=== PATIENT | male | born 1970 | race Caucasian/White ===

== ENCOUNTER 2021-07-08 18:46 | Inpatient (IN) ==
[2021-07-08 21:21] LABS: Basophils # (auto) 0.03 K/uL (0-0.2); Basophils % (auto) 0.2 %; Eosinophils # (auto) 0.01 K/uL (0-0.5); Eosinophils % (auto) 0.1 %; Hematocrit (blood only) 41.6 % (42-52); Hemoglobin 14.9 g/dL (14.0-18.0); Immature Granulocytes # (auto) 0.13 K/uL (0.00-0.02); Immature Granulocytes % (auto) 0.9 %; Lymphocytes # (auto) 1.65 K/uL (1.2-3.4); Lymphocytes % (auto) 11.4 %; Mean Corpuscular Hemoglobin 32.6 pg (25-34); Mean Corpuscular Hgb Conc 35.8 g/dL (32-36); Mean Platelet Volume 10.4 fL (7.4-10.4); Monocytes # (auto) 2.19 K/uL (0.11-0.59); Monocytes % (auto) 15.1 %; Neutrophils % (auto) 72.3 %; Platelet Count 271 K/uL (130-400); RDW Coefficient of Variation 11.7 % (11.5-14.5); RDW Standard Deviation 39.1 fL (36.4-46.3); Red Blood Count 4.57 M/uL (4.7-6.1); White Blood Count 14.51 K/uL (4.8-10.8)
[2021-07-08 21:35] LABS: Partial Thromboplastin Time 27.5 Seconds (21.0-31.0); Prothrombin Time 10.4 Seconds (9.0-12.0)
[2021-07-08 21:44] LABS: Albumin Globulin Ratio 1.1 (0.9-2); Albumin Level 4.1 gm/dl (3.4-5.0); BUN Creatinine Ratio 17.1 (10-20); Bilirubin,Total 0.7 mg/dl (0.2-1.0); Calcium 9.5 mg/dl (8.5-10.1); Creatinine Clr Calc Pharmacy 171.3 ml/min; Est GFR (African American) 127.5 ml/min; Globulin 3.6 gm/dl (2.5-4.0); Potassium 3.4 mmol/L (3.5-5.1); Total Protein 7.7 gm/dl (6.0-8.3)
--- NOTE | 2021-07-08 22:12 | Emergency Department Note ---
Impression & Plan Cellulitis of foot, left, Leukocytosis, Fever, Hyperglycemia ED Provider Note INFORMANT: Patient ED PROVIDER(S): Levy Cota MD CHIEF COMPLAINT:foot infection PLAN: Disposition: Admitted Condition: Good Outpatient prescription management: none Referral: None MEDICAL DECISION MAKING: Patient presented because of a left foot infection. On physical examination he has significant cellulitis and a large deep hole on the plantar aspect of the forefoot. There is weeping present. He was tachycardic. His white blood cell count was elevated. Patient was also found to be hyperglycemic. He notes a family history of diabetes but denies any personal history. The patient had cultures performed of the blood as well as of the wound. IV broad-spectrum antibiotics with Zosyn and daptomycin ordered. X-ray imaging performed and no obvious osteomyelitis noted. Subcutaneous air was suspected on x-ray. His foot underwent CT imaging and there was concern for subcutaneous air without evidence of osteomyelitis or obvious abscess per stat rad. Clindamycin was added. The patient was also given IV insulin. I did consult with Dr. Newman of [facility]. He agreed with the antibiotics and admission. They will consult on the patient for further management. [facility]ation [facility] with [facility] Patient was e valuated in ER admitted for further management. Triage Nursing notes reviewed and agree them. Vital Signs: reviewed and remarkable for tachycardia Differential diagnosis: Cellulitis, abscess, MRSA infection, DVT, necrotizing fasciitis, dermatitis, drug eruption, allergic reaction, as well as other pathologies. Diagnostics interpreted by me: ECG: Twelve-lead ECG reveals sinus tachycardia [address] elevation or depression. No PACs or PVCs. Cardiac Monitoring: none Imaging studies: X-ray and CT imaging as above. I refer you to the EMR for further details. HPI: The patient is a 51 year old male who presents to the Emergency Room with complaints of left foot infection. This started 3 days ago and is worsening rapidly. The patient also notes the following associated symptoms, fevers, drainage, chills, redness and swelling. The patient has been prescribed oral keflex by urgent care for relieving factors. Current pain is rated as 3/10. Notes having a small wound on the foot a month ago occur while swimming at a pool in [place]. Pt denies LOC, headache, diaphoresis, visual changes, neck pain, chest pain, breathing difficulties, nausea, vomiting, abdominal pain, back pain, melena, hematochezia, urinary symptoms, numbness, weakness, lymphadenopathy, rash, or other complaints. ROS: See above HPI for pertinent positives & negatives. A total of 10 systems reviewed and were otherwise negative. PAST MEDICAL HISTORY:See Below , htn PAST SURGICAL HISTORY:See Below, FAMILY HISTORY:See Below SOCIAL HISTORY:See Below, no tobacco HOME MEDICATIONS:See Below ALLERGIES:See Below VITALS:See Below PHYSICAL EXAMINATION: GENERAL: Awake, alert, well-appearing, in no distress HENT: Normocephalic, atraumatic. Oropharynx unremarkable. EYES: Normal conjunctiva. Sclera non-icteric. NECK: Inspection normal. Non-tender. Supple. No nuchal rigidity. FROM. No masses. RESPIRATORY: Clear to auscultation. No wheezes. No rales. Normal respiratory ef fort. CARDIAC: Normal rate. Normal rhythm. No murmurs. No rubs. Extremities warm and well perfused. Pulses equal. No JVD. GI: Soft, non-distended. No tenderness to palpation. No rebound or guarding. No masses. RECTAL: Deferred. MUSCULOSKELETAL: Atraumatic. Chest examination reveals no tenderness. The back is symmetrical on inspection without obvious abnormality. There is no CVA tenderness to palpation. No joint edema. LOWER EXTREMITIES: Calves are equal size bilaterally and non-tender. left foot with warmth, erythema, and drainage. Wound present on forefoot with maceration of the plantar aspect and between the toes. Moderately tender to palpation. NEURO: Normal sensorium. No sensory or motor deficits noted. SKIN: No rash or jaundice noted. Levy Cota MD Past Med/Surg History Social History Smoking Status: Never smoker Preferred Language: Telugu Feels Safe at Home: Yes Allergies Allergies Allergy/AdvReac Type Severity Reaction Status Date / Time No Known Allergies Allergy Verified 07/08/21 23:39 Home Meds Home Medications Medication Instructions Recorded Confirmed cephalexin 500 mg capsule 500 mg PO TID 07/08/21 07/08/21 famotidine 10 mg tablet 10 mg PO HS PRN 07/08/21 07/08/21 hydrochlorothiazide 25 mg tablet 25 mg PO DAILY 07/08/21 07/08/21 ibuprofen 200 mg tablet (Advil) 400 mg PO DIRECTED PRN 07/08/21 07/08/21 lisinopril 40 mg tablet 40 mg PO DAILY 07/08/21 07/08/21 Results & Data (ED) Vital Signs Vital Signs - 24 hr 07/08/21 19:13 Temperature 37.2 C Temperature Source Temporal Artery Scan Pulse Rate 132 H Respiratory Rate 16 Blood Pressure 111/72 Blood Pressure Mean 85 Pulse Oximetry 97 Oxygen Delivery Method Room Air Sepsis Recent Fever Within 48 Hours No Sepsis New/Unexplained Change in Mental Status N/A Sepsis Action Taken by Nursing No Action Required Laboratory Data Result diagrams: 07/08/21 21:03 07/08/21 21:03 Lab Results 07/08/21 07/08/21 07/08/21 Range/Units 21:03 21: 21:03 WBC 14.51 H (4.8-10.8) K/uL RBC 4.57 L (4.7-6.1) M/uL Hgb 14.9 (14.0-18.0) g/dL Hct 41.6 L (42-52) % MCV 91.0 (80-100) fL MCH 32.6 (25-34) pg MCHC 35.8 (32-36) g/dL RDW Std Deviation 39.1 (36.4-46.3) fL RDW Coeff of Edison 11.7 (11.5-14.5) % Plt Count 271 (130-400) K/uL MPV 10.4 (7.4-10.4) fL Immature Gran % (Auto) 0.9 % Neut % (Auto) 72.3 % Lymph % (Auto) 11.4 % [place] % (Auto) 15.1 % Eos % (Auto) 0.1 % Baso % (Auto) 0.2 % Neut # (Auto) 10.50 H (1.4-6.5) K/uL Lymph # (Auto) 1.65 (1.2-3.4) K/uL [place] # (Auto) 2.19 H (0.11-0.59) K/uL Eos # (Auto) 0.01 (0-0.5) K/uL Baso # (Auto) 0.03 (0-0.2) K/uL Immature Gran # (Auto) 0.13 H (0.00-0.02) K/uL PT 10.4 (9.0-12.0) Seconds INR 1.0 (0.9-1.1) APTT 27.5 (21.0-31.0) Seconds PTT Ratio 1.0 Sodium 131 L (136-145) mmol/L Potassium 3.4 L (3.5-5.1) mmol/L Chloride 92 L (98-107) mmol/L Carbon Dioxide 25 (21-32) mmol/L Anion Gap 14 H (3-11) BUN 12 (6-23) mg/dl Creatinine 0.70 (0.6-1.4) mg/dl Est Cr Clr Drug Dosing 171.3 ml/min Est GFR ( Amer) 127.5 ml/min Est GFR (Non-Af Amer) 110.0 ml/min BUN/Creatinine Ratio 17.1 (10-20) Glucose 310 H* (70-99(Fasting)) mg/dl POC Glucose (70-99) mg/dl Lactate (0.4-2.0) mmol/L Calcium 9.5 (8.5-10.1) mg/dl Magnesium 2.0 (1.7-2.4) mg/dl Total Bilirubin 0.7 (0.2-1.0) mg/dl AST 20 (13-39) U/L ALT 28 (7-52) U/L Alkaline Phosphatase 64 (34-104) U/L Total Protein 7.7 (6.0-8.3) gm/dl Albumin 4.1 (3.4-5.0) gm/dl Globulin 3.6 (2.5-4.0) gm/dl Albumin/Globulin Ratio 1.1 (0.9-2) TSH (0.300-4.500) uIu/ml SARS-CoV-2, RNA, NAAT (NEGATIVE) 07/08/21 07/08/21 07/08/21 Range/Units 21:03 21:03 22:25 WBC (4.8-10.8) K/uL RBC (4.7-6.1) M/uL Hgb (14.0-18.0) g/dL Hct (42-52) % MCV (80-100) fL MCH (25-34) pg MCHC (32-36) g/dL RDW Std Deviation (36.4-46.3) fL RDW Coeff of Edison (11.5-14.5) % Plt Count (130-400) K/uL MPV (7.4-10.4) fL Immature Gran % (Auto) % Neut % (Auto) % Lymph % (Auto) % [place] % (Auto) % Eos % (Auto) % Baso % (Auto) % Neut # (Auto) (1.4-6.5) K/uL Lymph # (Auto) (1.2-3.4) K/uL [place] # (Auto) (0.11-0.59) K/uL Eos # (Auto) (0-0.5) K/uL Baso # (Auto) (0-0.2) K/uL Immature Gran # (Auto) (0.00-0.02) K/uL PT (9.0-12.0) Seconds INR (0.9-1.1) APTT (21.0-31.0) Seconds PTT Ratio Sodium (136-145) mmol/L Potassium (3.5-5.1) mmol/L Chloride (98-107) mmol/L Carbon Dioxide (21-32) mmol/L Anion Gap (3-11) BUN (6-23) mg/dl Creatinine (0.6-1.4) mg/dl Est Cr Clr Drug Dosing ml/min Est GFR ( Amer) ml/min Est GFR (Non-Af Amer) ml/min BUN/Creatinine Ratio (10-20) Glucose (70-99(Fasting)) mg/dl POC Glucose (70-99) mg/dl Lactate 1.1 (0.4-2.0) mmol/L Calcium (8.5-10.1) mg/dl Magnesium (1.7-2.4) mg/dl Total Bilirubin (0.2-1.0) mg/dl AST (13-39) U/L ALT (7-52) U/L Alkaline Phosphatase (34-104) U/L Total Protein (6.0-8.3) gm/dl Albumin (3.4-5.0) gm/dl Globulin (2.5-4.0) gm/dl Albumin/Globulin Ratio (0.9-2) TSH 4.031 (0.300-4.500) uIu/ml SARS-CoV-2, RNA, NAAT NEGATIVE (NEGATIVE) 07/09/21 07/09/21 Range/Units 00:15 01:41 WBC (4.8-10.8) K/uL RBC (4.7-6.1) M/uL Hgb (14.0-18.0) g/dL Hct (42-52) % MCV (80-100) fL MCH (25-34) pg MCHC (32-36) g/dL RDW Std Deviation (36.4-46.3) fL RDW Coeff of Edison (11.5-14.5) % Plt Count (130-400) K/uL MPV (7.4-10.4) fL Immature Gran % (Auto) % Neut % (Auto) % Lymph % (Auto) % [place] % (Auto) % Eos % (Auto) % Baso % (Auto) % Neut # (Auto) (1.4-6.5) K/uL Lymph # (Auto) (1.2-3.4) K/uL [place] # (Auto) (0.11-0.59) K/uL Eos # (Auto) (0-0.5) K/uL Baso # (Auto) (0-0.2) K/uL Immature Gran # (Auto) (0.00-0.02) K/uL PT (9.0-12.0) Seconds INR (0.9-1.1) APTT (21.0-31.0) Seconds PTT Ratio Sodium (136-145) mmol/L Potassium (3.5-5.1) mmol/L Chloride (98-107) mmol/L Carbon Dioxide (21-32) mmol/L Anion Gap (3-11) BUN (6-23) mg/dl Creatinine (0.6-1.4) mg/dl Est Cr Clr Drug Dosing ml/min Est GFR ( Amer) ml/min Est GFR (Non-Af Amer) ml/min BUN/Creatinine Ratio (10-20) Glucose (70-99(Fasting)) mg/dl POC Glucose 348 H* 350 H* (70-99) mg/dl Lactate (0.4-2.0) mmol/L Calcium (8.5-10.1) mg/dl Magnesium (1.7-2.4) mg/dl Total Bilirubin (0.2-1.0) mg/dl AST (13-39) U/L ALT (7-52) U/L Alkaline Phosphatase (34-104) U/L Total Protein (6.0-8.3) gm/dl Albumin (3.4-5.0) gm/dl Globulin (2.5-4.0) gm/dl Albumin/Globulin Ratio (0.9-2) TSH (0.300-4.500) uIu/ml SARS-CoV-2, RNA, NAAT (NEGATIVE) Administered Medications Discontinued Medications Piperacillin Sod/Tazobactam Sod (Zosyn) 4.5 gm in 120 mls @ 240 mls/hr IV NOW ONE Stop: 07/08/21 22:47 Last Infusion: 07/09/21 01:08 Dose: 0 mls/hr Documented by: [id number] Admin: 07/09/21 00:31 Dose: 240 mls/hr Documented by: [id number] Daptomycin 500 mg/ Syringe 10 mls @ 5 mls/min IV ONE ONE; Protocol Stop: 07/08/21 22:19 Last Admin: 07/09/21 00:31 Dose: 5 mls/min Documented by: [id number] Clindamycin Phosphate 900 mg/ (Dextrose) 56 mls @ 112 mls/hr IV ONE ONE Stop: 07/09/21 00:26 Last Infusion: 07/09/21 01:46 Dose: 0 mls/hr Documented by: [id number] Admin: 07/09/21 01:09 Dose: 112 mls/hr Documented by: [id number] Lactated Ringer's (Lr) 1,000 mls @ 500 mls/hr IV .Q2H ONE Stop: 07/09/21 02:10 Last Admin: 07/09/21 02:08 Dose: 500 mls/hr Documented by: [id number] Insulin Glargine (Insulin Glargine Solostar 100 Units/Ml 3 Ml Pen) 30 units SC NOW STA Stop: 07/09/21 00:16 Last Admin: 07/09/21 02:05 Dose: 30 units Documented by: [id number] Cosigned by: [id number] Insulin Human Regular (Novolin-R Insulin Per Unit Charge) 6 units IV NOW STA Stop: 07/09/21 00:00 Last Admin: 07/09/21 00:28 Dose: 6 units Documented by: [id number] Cosigned by: [id number] Ioversol (Optiray 320 100ml) 95 ml IV ONCE ONE Stop: 07/08/21 22:58 Last Admin: 07/09/21 02:16 Dose: Not Given Documented by: [id number] Potassium Chloride (Potassium Chloride Crtab 20 Meq Tabcr) 40 meq PO NOW STA Stop: 07/09/21 00:12 Last Admin: 07/09/21 00:31 Dose: 40 meq Documented by: [id number] Discharge Plan Visit Data Chief Complaint: Infection Stated Complaint: LT FOOT INFECTION, REFERRED BY MED Perfect [employer] ED Provider: Levy Cota Discharge Problem: Cellulitis of foot, left, Leukocytosis, Fever, Hyperglycemia Forms Stand Alone Forms: [facility] Prescriptions Prescriptions: No Action famotidine 10 mg Tablet 10 mg PO HS PRN (Reason: HEARTBURN/INDIGESTION) RF: 0 cephalexin 500 mg capsule 500 mg PO TID RF: 0 ibuprofen [Advil] 200 mg Tablet 400 mg PO DIRECTED PRN (Reason: Pain) RF: 0 hydrochlorothiazide 25 mg tablet 25 mg PO DAILY RF: 0 lisinopril 40 mg tablet 40 mg PO DAILY RF: 0 Referrals Referrals: PCP,NO [Primary Care Provider] -
[2021-07-08] MEDS ORDERED: PIPERACILLIN/TAZOBACTAM 4.5 GM/120 ML BAG IV ONE (22:18)
[2021-07-08] MEDS ORDERED: PIPERACILL/TAZOBAC CONSULT ACTIVE PRN (22:18)
[2021-07-08] MEDS ORDERED: DAPTOmycin 500 MG in SYRINGE 0 ML IV ONE (22:18)
[2021-07-08] MEDS ORDERED: OPTIRAY 320 100ml IV ONE (22:57)
[2021-07-08] MEDS ORDERED: CLINDAMYCIN 900 MG in DEXTROSE 5% 50 ML IV ONE (23:57)
[2021-07-08] MEDS ORDERED: NovoLIN-R INSULIN PER UNIT CHARGE IV STA (23:59)
[2021-07-09] MEDS ORDERED: LACTATED RINGER'S 1,000 ML IV ONE ×2 (00:11→04:00)
[2021-07-09] MEDS ORDERED: POTASSIUM CHLORIDE CRTAB 20 MEQ TABCR PO STA (00:11)
[2021-07-09] MEDS ORDERED: INSULIN GLARGINE SOLOSTAR 100 UNITS/ML 3 ML PEN SC STA (00:15)
--- NOTE | 2021-07-09 01:36 | History & Physical Report ---
Date of Service July 09, 2021 Assessment & Plan (1) Sepsis: Plan: Secondary to infected L foot wound in a probable newly diagnosed diabetic male Rule out osteomyelitis Hypertension, stable Hypokalemia secondary diuretic Rx Medical telemetry CS, Daptomycin, Zosyn for now Follow outpatient wound CS result Follow official CT left foot report. May need MRI left foot to definitively rule out osteomyelitis. Offload LLE. Orthopedics consult Re: Left foot wound infection (ER provider already in touch with Dr. Newman.) Basal insulin, ISS BG goal 110-1 40, carb count coverage, check hemoglobin A1c Replace potassium, IVF, hold home diuretic until patient euvolemic Diabetic education Patient also requesting for referral to new PCP from [facility] upon discharge. DVT prophylaxis per Lovenox subcu Full code Text document was generated using [employer] voice recognition software. It may contain grammatical or spelling errors. Kindly contact undersigned for clarification of any documentation item in question. History of Present Illness Chief Complaint: Left foot wound infection Primary Care Provider: NO PCP Patient requesting to be set up with a [facility] PCP in [place] upon discharge. History obtained from patient and records. Medical history significant for hypertension, scoliosis. Patient has not been to a family doctor since 2009. 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 Patient has had a wound on his left foot for about 2 months. Started with a small hole at the bottom of the foot that would close up and reopen over the last few weeks. OTC topical antibiotic Rx utilized by patient. About 5 days ag o, patient noted sudden worsening of left foot wound with some drainage. Some chills. No chest pain, no S OB. Patient sent a picture to his [id number] who prescribed Keflex course. Patient consulted [facility] urgent care yesterday because of worsening left foot wound infection. Necrotic wound on the left foot noted. Wound cultures obtained outpatient. Patient directed to ER for evaluation. Daptomycin, Clindamycin, and Zosyn administered at the emergency room. IV insulin administered at the ER for blood sugar in the 300s. 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 Allergies Allergy/AdvReac Type Severity Reaction Status Date / Time No Known Allergies Allergy Verified 07/08/21 23:39 Home Medications Medication Instructions Recorded Confirmed Type cephalexin 500 mg capsule 500 mg PO TID 07/08/21 07/08/21 History famotidine 10 mg tablet 10 mg PO HS PRN 07/08/21 07/08/21 History hydrochlorothiazide 25 mg tablet 25 mg PO DAILY 07/08/21 07/08/21 History ibuprofen 200 mg tablet (Advil) 400 mg PO DIRECTED PRN 07/08/21 07/08/21 History lisinopril 40 mg tablet 40 mg PO DAILY 07/08/21 07/08/21 History Past Med/Surg History Social History Smoking Status: Never smoker Hx Substance Use: No Preferred Language: Greenlandic Communication Ability: Effective Stem Cleaning Machine Feeder Required: No Beliefs That Will Affect Care: None Current Living Situation: Alone Feels Safe at Home: Yes Safety Concerns: Feels Safe At This Time Assistive Devices: Glasses Review of Systems Review of Systems: As per HPI, all 10 systems reviewed, all other ROS negative Physical Exam Physical Exam: GENERAL: Comfortable, sweaty, obese, pleasant, no respiratory distress SKIN: Normal color, warm HEENT: Bespectacled, Roann palpebral conjunctivae, no ptosis, dry buccal mucosa NECK : Supple, short neck, no tenderness CHEST : CTA, no tenderness HEART : Tachycardic, no obvious murmurs ABDOMEN: Some distention, nontender EXTREMITIES : No LE swelling/tenderness, dressing and boot over left foot, no other conspicuous deformities noted NEUROLOGIC : Coherent, no facial asymmetry, no other gross focality Results & Data Results & Data ([facility]) Vital Signs (Past 12 Hours) Vital Signs Temp Pulse Resp BP Pulse Ox 07/08/21 19:13 37.2 C 132 H 16 111/72 97 Laboratory Results Laboratory Results WBC 14.51 K/uL (4.8-10.8) H 07/08/21 21:03 RBC 4.57 M/uL (4.7-6.1) L 07/08/21 21:03 Hgb 14.9 g/dL (14.0-18.0) 07/08/21 21:03 Hct 41.6 % (42-52) L 07/08/21 21:03 MCV 91.0 fL (80-100) 07/08/21 21:03 MCH 32.6 pg (25-34) 07/08/21 21:03 MCHC 35.8 g/dL (32-36) 07/08/21 21:03 RDW Std Deviation 39.1 fL (36.4-46.3) 07/08/21 21:03 RDW Coeff of Edison 11.7 % (11.5-14.5) 07/08/21 21:03 Plt Count 271 K/uL (130-400) 07/08/21 21:03 MPV 10.4 fL (7.4-10.4) 07/08/21 21:03 Immature Gran % (Auto) 0.9 % 07/08/21 21:03 Neut % (Auto) 72.3 % 07/08/21 21:03 Lymph % (Auto) 11.4 % 07/08/21 21:03 [place] % (Auto) 15.1 % 07/08/21 21:03 Eos % (Auto) 0.1 % 07/08/21 21:03 Baso % (Auto) 0.2 % 07/08/21 21:03 Neut # (Auto) 10.50 K/uL (1.4-6.5) H 07/08/21 21:03 Lymph # (Auto) 1.65 K/uL (1.2-3.4) 07/08/21 21:03 [place] # (Auto) 2.19 K/uL (0.11-0.59) H 07/08/21 21:03 Eos # (Auto) 0.01 K/uL (0-0.5) 07/08/21 21: Baso # (Auto) 0.03 K/uL (0-0.2) 07/08/21 21:03 Immature Gran # (Auto) 0.13 K/uL (0.00-0.02) H 07/08/21 21: PT 10.4 Seconds (9.0-12.0) 07/08/21 21:03 INR 1.0 (0.9-1.1) 07/08/21 21:03 APTT 27.5 Seconds (21.0-31.0) 07/08/21 21: PTT Ratio 1.0 07/08/21 21: Sodium 131 mmol/L (136-145) L 07/08/21 21:03 Potassium 3.4 mmol/L (3.5-5.1) L 07/08/21 21:03 Chloride 92 mmol/L (98-107) L 07/08/21 21:03 Carbon Dioxide 25 mmol/L (21-32) 07/08/21 21:03 Anion Gap 14 (3-11) H 07/08/21 21:03 BUN 12 mg/dl (6-23) 07/08/21 21:03 Creatinine 0.70 mg/dl (0.6-1.4) 07/08/21 21:03 Est Cr Clr Drug Dosing 171.3 ml/min 07/08/21 21:03 Est GFR ( Amer) 127.5 ml/min 07/08/21 21:03 Est GFR (Non-Af Amer) 110.0 ml/min 07/08/21 21:03 BUN/Creatinine Ratio 17.1 (10-20) 07/08/21 21:03 Glucose 310 mg/dl (70-99(Fasting)) H* 07/08/21 21:03 POC Glucose 348 mg/dl (70-99) H* 07/09/21 00:15 Lactate 1.1 mmol/L (0.4-2.0) 07/08/21 21:03 Calcium 9.5 mg/dl (8.5-10.1) 07/08/21 21:03 Magnesium 2.0 mg/dl (1.7-2.4) 07/08/21 21:03 Total Bilirubin 0.7 mg/dl (0.2-1.0) 07/08/21 21:03 AST 20 U/L (13-39) 07/08/21 21:03 ALT 28 U/L (7-52) 07/08/21 21:03 Alkaline Phosphatase 64 U/L (34-104) 07/08/21 21:03 Total Protein 7.7 gm/dl (6.0-8.3) 07/08/21 21:03 Albumin 4.1 gm/dl (3.4-5.0) 07/08/21 21:03 Globulin 3.6 gm/dl (2.5-4.0) 07/08/21 21:03 Albumin/Globulin Ratio 1.1 (0.9-2) 07/08/21 21:03 TSH 4.031 uIu/ml (0.300-4.500) 07/08/21 21:03 SARS-CoV-2, RNA, NAAT NEGATIVE (NEGATIVE) 07/08/21 22:[address] left foot initial read: Abnormal soft tissue air likelyrelated to soft tissue infection. No foreign body. There is awound on the plantar aspect of the forefoot near the second and third metatarsal heads . There is no evidence of active bone destruction byCT. No fracture or dislocation. Chest x-ray as per my interpretation no congestion EKG as per my interpretation : Rate 120, sinus tachycardia, normal axis, no ischemia
[2021-07-09] MEDS ORDERED: PROMETHAZINE HCL 12.5 MG in SODIUM CHLORIDE 0.9% 50 ML IV PRN (03:50)
[2021-07-09] MEDS ORDERED: GLUCOSE 40% GEL 15 GM TUBE PO PRN (03:50)
[2021-07-09] MEDS ORDERED: oxyCODONE HCL IR 5 MG TAB (IMMEDIATE RELEASE) PO PRN (03:50)
[2021-07-09] MEDS ORDERED: GLUCOSE 10 TABS/TUBE PO PRN (03:50)
[2021-07-09] MEDS ORDERED: CARBOHYDRATES FOR HYPOGLYCEMIA PO PRN (03:50)
[2021-07-09] MEDS ORDERED: GLUCAGON FOR INJ 1 MG VIAL SQ PRN (03:50)
[2021-07-09] MEDS ORDERED: MoRPHine SULFATE 4 MG/ML 1 ML CARP\\VIAL IV PRN (03:50)
[2021-07-09] MEDS ORDERED: DEXTROSE 50% 50 ML SYRINGE IV PRN (03:50)
[2021-07-09] MEDS: INSULIN ASPART PER UNIT SC SCH ×5 (04:00→20:42)
[2021-07-09 06:17] LABS: Basophils # (auto) 0.03 K/uL (0-0.2); Basophils % (auto) 0.2 %; Eosinophils # (auto) 0.03 K/uL (0-0.5); Eosinophils % (auto) 0.2 %; Hematocrit (blood only) 39.3 % (42-52); Hemoglobin 13.5 g/dL (14.0-18.0); Immature Granulocytes % (auto) 0.8 %; Lymphocytes # (auto) 2.45 K/uL (1.2-3.4); Lymphocytes % (auto) 19.2 %; Mean Corpuscular Hemoglobin 32.1 pg (25-34); Mean Corpuscular Hgb Conc 34.4 g/dL (32-36); Mean Corpuscular Volume 93.3 fL (80-100); Mean Platelet Volume 10.3 fL (7.4-10.4); Monocytes % (auto) 16.5 %; Neutrophils # (auto) 8.02 K/uL (1.4-6.5); Neutrophils % (auto) 63.1 %; Platelet Count 260 K/uL (130-400); RDW Coefficient of Variation 11.9 % (11.5-14.5); RDW Standard Deviation 40.1 fL (36.4-46.3); Red Blood Count 4.21 M/uL (4.7-6.1); White Blood Count 12.73 K/uL (4.8-10.8)
[2021-07-09 06:43] LABS: BUN Creatinine Ratio 14.9 (10-20); Calcium 8.9 mg/dl (8.5-10.1); Est GFR (African American) 124.7 ml/min; Est GFR (Non-African American) 107.6 ml/min; Potassium 3.6 mmol/L (3.5-5.1)
[2021-07-09] MEDS: PIPERACILLIN/TAZOBACTAM 4.5 GM in DEXTROSE 5% 100 ML IV SCH ×3 (07:11→23:21)
--- NOTE | 2021-07-09 07:19 | XRay Report ---
SINGLE VIEW CHEST CLINICAL HISTORY: Sepsis. FINDINGS: 2 AP, portable, upright chest radiographs are obtained. No prior studies are available for comparison at the time of dictation. The cardiomediastinal silhouette is unremarkable. The lungs and pleural spaces are clear. No pneumothorax is seen. The bony thorax is grossly intact. IMPRESSION: No acute cardiopulmonary abnormality. ACT 112: Negative or not required by law. Electronically signed by: De Reynoso M.D. 07/09/2021 7:18 AM
--- NOTE | 2021-07-09 07:24 | XRay Report ---
LEFT FOOT 3 VIEWS CLINICAL HISTORY: Wound infection. FINDINGS: 3 views of the left foot are obtained. No prior studies are available for comparison at the time of dictation. The skeletal structures are well mineralized. No fracture is seen. There is no [place] erosion or periostitis. Moderate osteoarthritic change is noted at the first metatarsophalangeal j oint. Soft tissue edema is seen throughout the forefoot. A wound is suspected along the plantar aspec t of the forefoot. Soft tissue gas is present in the forefoot, greatest in the first digit. No radiod ense foreign body is identified. IMPRESSION: 1. No acute bony abnormality is identified. 2. Soft tissue edema, a plantar wound, and soft tissue gas are present in the forefoot. Correlate cli nically for evidence of necrotizing infection. Electronically signed by: De Reynoso M.D. 07/09/2021 7:23 AM
[2021-07-09 07:31] LABS: Estimated Average Glucose 249 mg/dl; Hemoglobin A1C 10.3 % (4.5-5.6)
--- NOTE | 2021-07-09 08:34 | CT Scan Report ---
CT SCAN OF THE LEFT FOOT WITH IV CONTRAST CLINICAL HISTORY: Cellulitis. COMPARISON STUDY: Radiographs of left foot dated 07/08/2021. TECHNIQUE: Following the IV administration of 95 cc of Optiray 320, CT scan of the left foot is perfo rmed from the ankle to the base of the foot. Images are reviewed in the axial, sagittal, and coronal planes. IV contrast was administered without complication. A dose lowering technique was utilized adh ering to the principles of ALARA. CT DOSE: 218.67 mGy.cm FINDINGS: The skeletal structures are well mineralized. There is no evidence of fracture. The ankle m ortise is intact. Moderate osteoarthritic change is seen at the first metatarsophalangeal joint. Mild erosive change is seen at the plantar base of the first distal phalanx on axial image #323. This sug gests osteomyelitis. No additional foci of bony erosion are identified. An os trigonum is incidentall y noted. Diffuse soft tissue edema is present throughout the forefoot, with a wound suggested along t he plantar aspect of the second metatarsal. Soft tissue gas is present throughout the forefoot, great est in the first and second toes. This suggests necrotizing infection. No organized/drainable fluid c ollection is seen to indicate abscess. No radiodense foreign body is identified. The Achilles tendon is intact as imaged. IMPRESSION: 1. There is a plantar wound in the forefoot with evidence of cellulitis/necrotizing soft tissue infec tion. 2. Erosive change is present along the plantar base of the first distal phalanx. This is strongly ash picious for osteomyelitis. 3. No additional foci of bony erosion are identified. 4. No fracture is seen. 5. There is no organized/drainable fluid collection identified to indicate abscess. ACT 112: Negative or not required by law. Dictated: 07/09/2021 7:53 AM Transcribed: 07/09/2021 8:29 AM Lisa [id number] [email or web address] Electronically signed by: De Reynoso M.D. 07/09/2021 8:32 AM
[2021-07-09] MEDS ORDERED: ENOXAPARIN INJ 40 MG/0.4 ML SYR SQ SCH (09:00)
[2021-07-09] MEDS: lisinopril 40 MG TAB PO SCH (09:36)
[2021-07-09] MEDS: SACCHAROMYCES BOULARDII 250 MG CAP PO SCH (10:46)
--- NOTE | 2021-07-09 12:03 | Electrocardiogram Report ---
Test Reason : Blood Pressure : / mmHG Vent. Rate : 118 BPM Atrial Rate : 118 BPM P-R Int : 146 ms QRS Dur : 092 ms QT Int : 332 ms P-R-T Axes : 055 015 045 degrees QTc Int : 465 ms Sinus tachycardia Otherwise normal ECG No previous ECGs available Confirmed by Darnell Wray ([id number]) on 07/09/2021 12:01:51 PM Referred By: REFERRED SELF Confirmed By:Darnell Wray
--- NOTE | 2021-07-09 13:42 | Hospitalist Progress Note ---
Date of Service July 09, 2021 Assessment & Plan Plan: Left DM foot infection Underlying Osteomyelitis Necrotic soft tissue infection -Surgical consultation pending, I discussed directly with provider today -check ESR, CPR tomorrow to establish baseline and for purpose of monitoring treatment -improved leukocytosis, trend CBC, BMP -deep tissue culture sent yesterday--> will follow up -Once tissue culture (and possiblye OR culture) data is available--> will disc uss with ID regarding final antibiotic recommendations -Continue daptomycin and zosyn Newly diagnosed poorly controlled DM -HA1c 10.3% -He is currently on insulin, with new diagnosis. DM educator and glycemic pharmacist consulted Poorly controlled HTN -at home, was previously on lisinopril 40mg daily and HCTZ 25mg daily -here is only on lisinopril 40mg. Will also resume HCTZ 25mg for better BP control DVT ppx SQ lovenox. Hold tomorrow's dose in anticipation of surgery Admission and Anticipated Discharge Date Admission Date: July 09, 2021 Subjective Reports foot feels better, less swollen BP elevated, but patient thinks it may be due to stress. "I'm very upset right now. I just found out I have diabetes and now you're telling me I may need surgery" Physical Exam Physical Exam: overweight, pleasant, comfortable, no acute distress Respiratory: breathing comfortably on room air, no wheezing/rhonchi/rales Cardiovascular: regular rate and rhythm, no murmurs/rubs/gallops Gastrointestinal (Abdomen): soft Musculoskeletal: left foot with extensive swelling, redness, with underlying purulence on plantar aspect. Skin: Left foot erythematous, with underlying purulence Neurologic: awake, alert, spontaneously moving extremities Results & Data Results & Data ([facility]) Vital Signs (Past 12 Hours) Vital Signs Pulse Resp BP Pulse Ox Pulse Ox 07/09/21 08:00 93 H 17 160/103 H 95 07/09/21 07:20 97 07/09/21 07:00 96 H 17 145/103 H 97 07/09/21 02:30 110 H 16 135/80 100 Laboratory Results Short CBC 07/08/21 07/09/21 Range/Units 21:03 06:01 WBC 14.51 H 12.73 H (4.8-10.8) K/uL Hgb 14.9 13.5 L (14.0-18.0) g/dL Hct 41.6 L 39.3 L (42-52) % Plt Count 271 260 (130-400) K/uL BMP 07/08/21 07/09/21 21:03 06:01 Sodium 131 L 132 L Potassium 3.4 L 3.6 Chloride 92 L 95 L Carbon Dioxide 25 29 BUN 12 11 Creatinine 0.70 0.74 Glucose 310 H* 266 H Calcium 9.5 8.9 Liver Function 07/08/21 Range/Units 21:03 Total Bilirubin 0.7 (0.2-1.0) mg/dl AST 20 (13-39) U/L ALT 28 (7-52) U/L Alkaline Phosphatase 64 (34-104) U/L Albumin 4.1 (3.4-5.0) gm/dl Medications Administered Current Inpatient Medications Acetaminophen (Acetaminophen 325 Mg Tab) 650 mg PO Q4H PRN PRN Reason: Pain or Fever Stop: 08/08/21 03:49 Dextrose (Dextrose 50% 50 Ml Syringe) 25 - 50 ml IV UD PRN; Protocol PRN Reason: Hypoglycemia Protocol Stop: 08/08/21 03:49 Enoxaparin Sodium (Enoxaparin Inj 40 Mg/0.4 Ml Syr) 40 mg SQ QAM KATHERINE Stop: 08/08/21 08:59 Last Admin: 07/09/21 09:36 Dose: 40 mg Documented by: Famotidine (Famotidine 10 Mg Tablet) 10 mg PO HS PRN PRN Reason: HEARTBURN/INDIGESTION Stop: 08/08/21 03:49 Glucagon (Glucagon For Inj 1 Mg Vial) 1 mg SQ UD PRN; Protocol PRN Reason: Hypoglycemia Protocol Stop: 08/08/21 03:49 Glucose (Glucose 10 Tabs/Tube) 4 - 8 tabs PO UD PRN; Protocol PRN Reason: Hypoglycemia Protocol Stop: 08/08/21 03:49 Glucose (Glucose 40% Gel 15 Gm Tube) 15 - 30 gm PO UD PRN; Protocol PRN Reason: Hypoglycemia Protocol Stop: 08/08/21 03:49 Lactated Ringer's (Lr) 1,000 mls @ 80 mls/hr IV .[id number] ONE Stop: 07/09/21 16:29 Last Infusion: 07/09/21 11:20 Dose: 80 mls/hr Documented by: Promethazine HCl 12.5 mg/ (Sodium Chloride) 50.5 mls @ 202 mls/hr IV Q6H PRN PRN Reason: Nausea And Vomiting Stop: 08/08/21 03:49 Piperacillin Sod/Tazobactam (Sod 4.5 gm/ Dextrose) 120 mls @ 30 mls/hr IV Q8H [facility]; Protocol Stop: 07/16/21 05:59 Last Infusion: 07/09/21 11:20 Dose: Infused Documented by: Daptomycin 500 mg/ Syringe 10 mls @ 5 mls/min IV Q24H [facility]; Protocol Stop: 08/20/21 21:59 Insulin Aspart (Insulin Aspart Per Unit) 0 units SC ACHS [facility] Stop: 08/08/21 03:49 Last Admin: 07/09/21 13:26 Dose: 6 units Documented by: Insulin Glargine (Insulin Glargine Solostar 100 Units/Ml 3 Ml Pen) 30 units SC HS [facility] Stop: 08/08/21 20:59 Lisinopril (Lisinopril 40 Mg Tab) 40 mg PO DAILY KATHERINE Stop: 08/08/21 08:59 Last Admin: 07/09/21 09:36 Dose: 40 mg Documented by: Miscellaneous (Carbohydrates For Hypoglycemia ) 15 - 30 gm PO UD PRN PRN Reason: Hypoglycemia Protocol Stop: 08/08/21 03:49 Miscellaneous Information (Piperacill/Tazobac Consult Active) 1 ea N/A UD PRN PRN Reason: Consult Stop: 08/07/21 22:17 Miscellaneous Information (Daptomycin Consult Active) 1 ea N/A UD PRN PRN Reason: Consult Stop: 08/07/21 22:17 Morphine Sulfate (Morphine Sulfate 4 Mg/Ml 1 Ml Carp\\Vial) 4 mg IV Q4H PRN PRN Reason: Pain Stop: 07/23/21 03:49 Oxycodone HCl (Oxycodone Hcl Ir 5 Mg Tab (Immediate Release)) 5 mg PO Q4H PRN PRN Reason: Pain Stop: 07/23/21 03:49 Saccharomyces Boulardii (Saccharomyces Boulardii 250 Mg Cap) 250 mg PO DAILY [facility] Stop: 08/08/21 08:59 Last Admin: 07/09/21 10:46 Dose: Not Given Documented by:
[2021-07-09] MEDS ORDERED: PHARMACY GLYCEMIC MGMT CONSULT PRN (13:43)
--- NOTE | 2021-07-09 14:41 | Orthopedic Consultation ---
Date of Consultation July 09, 2021 Assessment & Plan (1) Cellulitis of foot, left: Continue current antibiotics. MRI with and without contrast ordered for the left foot. I will discuss the case with Dr. Newman and plans will be made for irrigation debridement. I have discussed treatment with the patient at length. Depending on MRI results, discussed that patient might need to have partial amputation of the right great toe if osteomyelitis is present. History of Present Illness Reason for Consultation: Infection left foot Attending Physician: Akosua Sykes MD History of Present Illness Patient is a 51-year-old male who came to the ER today last night secondary to worsening left foot wound. Patient states that approximately 3 months ago, he started having a small wound on the plantar aspect of his foot. He was treating this with antibiotic ointment and it would heal at times and then come back. T he patient states he did not think much of this and it continued to enlarge over time. Patient states that he was having some numbness and tingling in both of his feet which he states has been for approximately a year. He felt it was related to his scoliosis and lumbar spine disease. He was not having much in the way of pain with his left foot. Within the last week, he began noticing that he had increased swelling and redness of his great toe and second toe. He also noticed that the skin began to deteriorate on the dorsal surface. He continued to have developing cellulitis. He had taken a picture of it and sent it to his [id number] who prescribed him Keflex. Patient was having fever and chills off and on at home. He went to [facility] urgent care yesterday. Cultures were taken and with his noted necrotic-looking dorsal wound, he was then sent to the emergency room. He was seen by the staff and x-rays were taken including CT scan. Gas was noted on x-ray and question of osteomyelitis of the distal phalanx of the first toe. He was admitted by the [facility] hospitalist service and started on antibiotics. Of note it was found that his initial BSG was over 300 and his hemoglobin A1c was a little over 10. We have now been asked to take care of his foot infection. Allergies Allergy/AdvReac Type Severity Reaction Status Date / Time No Known Allergies Allergy Verified 07/08/21 23:39 Home Medications Medication Instructions Recorded Confirmed Type cephalexin 500 mg capsule 500 mg PO TID 07/08/21 07/08/21 History famotidine 10 mg tablet 10 mg PO HS PRN 07/08/21 07/08/21 History hydrochlorothiazide 25 mg tablet 25 mg PO DAILY 07/08/21 07/08/21 History ibuprofen 200 mg tablet (Advil) 400 mg PO DIRECTED PRN 07/08/21 07/08/21 History lisinopril 40 mg tablet 40 mg PO DAILY 07/08/21 07/08/21 History Patient History Medical History (Updated 07/09/21 @ 14:53 by Ashwin Obando PA-C) Hypertension Scoliosis Social History Smoking Status: Never smoker Hx Substance Use: No Preferred Language: Greek Communication Ability: Effective [employer]er[employer] Supervisor Required: No Beliefs That Will Affect Care: None Current Living Situation: Alone Feels Safe at Home: Yes Safety Concerns: Feels Safe At This Time Assistive Devices: None Physical Exam Physical Exam: Patient is a 51-year-old white male, alert and oriented x3, no acute distress, pleasant cooperative. He does not look overtly ill. On examination of his left foot, there is a dressing on the dorsum and plantar aspect of his foot secured with an Prashanth wrap. This is removed. Patient has noted markings above the ankle where his cellulitis had increased to. Currently the cellulitis is resolving from the proximal area. He still has a diffuse cellulitis of his foot over the dorsal aspect. He has moderate swelling of the first and second toes. Cellulitis present. He has a 1/2 cm open wound with yellow slough noted between the first and second toes. He has some skin mottling on the great toe as well as on the second toe over the dorsal aspect. On the plantar surface he has noted erythema of the distal first and second toes with swelling. He has an open ulcer on the plantar aspect that is approximately 1 cm in width with no erythema and no gross purulence. This is in the area of the second and third MTP joint. He has skin mottling over the area of the plantar aspect of the second toe and the first toe. It appears to be in case a small amount of purulence at this time which I cannot express. There is no foul odor at this time. Of note patient has a fairly dense neuropathy of both feet. Palpating the toes and the foot does not elicit a painful response at the distal portion. He is able to move the toes at this time. Cap refills less than 2 seconds. He does have a strong dorsalis pedis pulse. Results & Data ([facility]) Vital Signs (Past 12 Hours) Vital Signs Pulse Resp BP Pulse Ox Pulse Ox 07/09/21 08:00 93 H 17 160/103 H 95 07/09/21 07:20 97 07/09/21 07:00 96 H 17 145/103 H 97 Diagnostic Findings Laboratory Results WBC 12.73 K/uL (4.8-10.8) H 07/09/21 06:01 RBC 4.21 M/uL (4.7-6.1) L 07/09/21 06:01 Hgb 13.5 g/dL (14.0-18.0) L 07/09/21 06:01 Hct 39.3 % (42-52) L 07/09/21 06:01 MCV 93.3 fL (80-100) 07/09/21 06:01 MCH 32.1 pg (25-34) 07/09/21 06:01 MCHC 34.4 g/dL (32-36) 07/09/21 06:01 RDW Std Deviation 40.1 fL (36.4-46.3) 07/09/21 06:01 RDW Coeff of Edison 11.9 % (11.5-14.5) 07/09/21 06:01 Plt Count 260 K/uL (130-400) 07/09/21 06:01 MPV 10.3 fL (7.4-10.4) 07/09/21 06:01 Immature Gran % (Auto) 0.8 % 07/09/21 06:01 Neut % (Auto) 63.1 % 07/09/21 06:01 Lymph % (Auto) 19.2 % 07/09/21 06:01 [place] % (Auto) 16.5 % 07/09/21 06:01 Eos % (Auto) 0.2 % 07/09/21 06:01 Baso % (Auto) 0.2 % 07/09/21 06:01 Neut # (Auto) 8.02 K/uL (1.4-6.5) H 07/09/21 06:01 Lymph # (Auto) 2.45 K/uL (1.2-3.4) 07/09/21 06:01 [place] # (Auto) 2.10 K/uL (0.11-0.59) H 07/09/21 06:01 Eos # (Auto) 0.03 K/uL (0-0.5) 07/09/21 06:01 Baso # (Auto) 0.03 K/uL (0-0.2) 07/09/21 06:01 Immature Gran # (Auto) 0.10 K/uL (0.00-0.02) H 07/09/21 06:01 PT 10.4 Seconds (9.0-12.0) 07/08/21 21:03 INR 1.0 (0.9-1.1) 07/08/21 21:03 APTT 27.5 Seconds (21.0-31.0) 07/08/21 21:03 PTT Ratio 1.0 07/08/21 21:03 Sodium 132 mmol/L (136-145) L 07/09/21 06:01 Potassium 3.6 mmol/L (3.5-5.1) 07/09/21 06:01 Chloride 95 mmol/L (98-107) L 07/09/21 06:01 Carbon Dioxide 29 mmol/L (21-32) 07/09/21 06:01 Anion Gap 8 (3-11) 07/09/21 06:01 BUN 11 mg/dl (6-23) 07/09/21 06:01 Creatinine 0.74 mg/dl (0.6-1.4) 07/09/21 06:01 Est Cr Clr Drug Dosing 162.0 ml/min 07/09/21 06:01 Est GFR ( Amer) 124.7 ml/min 07/09/21 06:01 Est GFR (Non-Af Amer) 107.6 ml/min 07/09/21 06:01 BUN/Creatinine Ratio 14.9 (10-20) 07/09/21 06:01 Glucose 266 mg/dl (70-99(Fasting)) H 07/09/21 06:01 POC Glucose 222 mg/dl (70-99) H 07/09/21 13:13 Estimat Average Glucose 249 mg/dl 07/08/21 21:09 Hemoglobin A1c 10.3 % (4.5-5.6) H 07/08/21 21:09 Lactate 1.1 mmol/L (0.4-2.0) 07/08/21 21:03 Calcium 8.9 mg/dl (8.5-10.1) 07/09/21 06:01 Magnesium 2.0 mg/dl (1.7-2.4) 07/08/21 21:03 Total Bilirubin 0.7 mg/dl (0.2-1.0) 07/08/21 21:03 AST 20 U/L (13-39) 07/08/21 21:03 ALT 28 U/L (7-52) 07/08/21 21:03 Alkaline Phosphatase 64 U/L (34-104) 07/08/21 21:03 Total Protein 7.7 gm/dl (6.0-8.3) 07/08/21 21:03 Albumin 4.1 gm/dl (3.4-5.0) 07/08/21 21:03 Globulin 3.6 gm/dl (2.5-4.0) 07/08/21 21:03 Albumin/Globulin Ratio 1.1 (0.9-2) 07/08/21 21:03 TSH 4.031 uIu/ml (0.300-4.500) 07/08/21 21:03 SARS-CoV-2, RNA, NAAT NEGATIVE (NEGATIVE) 07/08/21 22:25 Impressions Foot X-Ray 07/08/21 21:33 LEFT FOOT 3 VIEWS CLINICAL HISTORY: Wound infection. FINDINGS: 3 views of the left foot are obtained. No prior studies are available for comparison at the time of dictation. The skeletal structures are well mine ralized. No fracture is seen. There is no bony erosion or periostitis. Moderate osteoarthritic change is noted at the first metatarsophalangeal joint. Soft tissue edema is seen throughout the forefoot. A wound is suspected along the plantar aspect of the forefoot. Soft tissue gas is present in the forefoot, greatest in the first digit. No radiodense foreign body is identified. IMPRESSION: 1. No acute bony abnormality is identified. 2. Soft tissue edema, a plantar wound, and soft tissue gas are present in the forefoot. Correlate clinically for evidence of necrotizing infection. Electronically signed by: De Reynoso M.D. 07/09/2021 7:[address] 07/08/21 22:18 CT SCAN OF THE LEFT FOOT WITH IV CONTRAST CLINICAL HISTORY: Cellulitis. COMPARISON STUDY: Radiographs of left foot dated 07/08/2021. TECHNIQUE: Following the IV administration of 95 cc of Optiray 320, CT scan of the left foot is performed from the ankle to the base of the foot. Images are reviewed in the axial, sagittal, and coronal planes. IV contrast was administered without complication. A dose lowering technique was utilized adhering to the principles of ALARA. CT DOSE: 218.67 mGy.cm FINDINGS: The skeletal structures are well mineralized. There is no evidence of fracture. The ankle mortise is intact. Moderate osteoarthritic change is seen at the first metatarsophalangeal joint. Mild erosive change is seen at the plantar base of the first distal phalanx on axial image #323. This suggests osteomyelitis. No additional foci of bony erosion are identified. An os trigonum is incidentally noted. Diffuse soft tissue edema is present throughout the forefoot, with a wound suggested along the plantar aspect of the second metatarsal. Soft tissue gas is present throughout the forefoot, greatest in the first and second toes. This suggests necrotizing infection. No organized/drainable fluid collection is seen to indicate abscess. No radiodense foreign body is identified. The Achilles tendon is intact as imaged. IMPRESSION: 1. There is a plantar wound in the forefoot with evidence of cellulitis/necrotizing soft tissue infection. 2. Erosive change is present along the plantar base of the first distal phalanx. This is strongly suspicious for osteomyelitis. 3. No additional foci of bony erosion are identified. 4. No fracture is seen. 5. There is no organized/drainable fluid collection identified to indicate abscess. ACT 112: Negative or not required by law. Dictated: 07/09/2021 7:53 AM Transcribed: 07/09/2021 8:29 AM Lisa [id number] [email or web address] Electronically signed by: De Reynoso M.D. 07/09/2021 8:32 AM
[2021-07-09] MEDS ORDERED: GADOBUTROL 65ML VIAL IV ONE (16:47)
--- NOTE | 2021-07-09 17:28 | Magnetic Resonance Report ---
MR foot LT wo/w con CLINICAL HISTORY: Pain and swelling of the great toe. Evaluate for osteomyelitis 1st distal phalanx. COMPARISON: CT of the left foot from 07/08/2021 and standard radiographs from 07/08/2021 TECHNIQUE: Multiplanar multisequence images of the distal left foot were performed with and without IV contrast. Contrast Volume: 11.5 ml of Gadavist FINDINGS: Osseous structures: Homogeneous marrow signal is seen throughout the imaged bones of the foot. There is no evidence for marrow edema or marrow replacement. There is no abnormal marrow enhancement follow ing contrast administration. No acute osseous pathology is seen. There is no MR evidence for osteomye litis as suggested by CT. Joints: There is marked narrowing and degenerative change at the first MTP joint. There is evidence f or a cyst small joint effusion at the IP joint of the right toe. The remaining imaged joints of the f oot are intact. Tendons: The extensor tendons along the dorsum of the foot and the flexor tendons along the plantar a spect of the foot are intact. The Achilles' tendon appears normal. Plantar fascia appears normal. Ligaments: The imaged ligaments of the foot are intact. Soft tissues: There is diffuse subcutaneous edema seen surrounding the great toe and second toe with extension along the dorsum of the foot. Is also edema seen within the interosseous muscles and to a l shyanne extent along the plantar aspect of the foot. There is no focal fluid collection or abscess. IMPRESSION: 1. No MR evidence for osteomyelitis as suspected on CT. 2. However, there is an effusion of the IP joint of the great toe. No erosive changes are seen with n o definite evidence for septic arthritis. 3. There is diffuse subcutaneous soft tissue swelling of first and second toes and extending proximal ly with findings characteristic of cellulitis. 4. No focal fluid collection or abscess is seen. ACT 112: Negative or not required by law. Electronically signed by: Marquis Holguin M.D. 07/09/2021 5:27 PM
[2021-07-09] MEDS: ACETAMINOPHEN 325 MG TAB PO PRN (20:41)
[2021-07-09] MEDS: INSULIN GLARGINE SOLOSTAR 100 UNITS/ML 3 ML PEN SC SCH (20:43)
[2021-07-09] MEDS: DAPTOmycin 500 MG in SYRINGE 0 ML IV SCH (22:47)
[2021-07-10] MEDS: PIPERACILLIN/TAZOBACTAM 4.5 GM in DEXTROSE 5% 100 ML IV SCH ×3 (05:34→22:45)
[2021-07-10] MEDS: INSULIN ASPART PER UNIT SC SCH ×3 (07:01→17:41)
[2021-07-10 07:11] LABS: Basophils # (auto) 0.08 K/uL (0-0.2); Basophils % (auto) 0.8 %; Eosinophils # (auto) 0.08 K/uL (0-0.5); Eosinophils % (auto) 0.8 %; Hematocrit (blood only) 38.3 % (42-52); Hemoglobin 13.2 g/dL (14.0-18.0); Immature Granulocytes # (auto) 0.13 K/uL (0.00-0.02); Immature Granulocytes % (auto) 1.2 %; Lymphocytes # (auto) 3.06 K/uL (1.2-3.4); Lymphocytes % (auto) 29.1 %; Mean Corpuscular Hemoglobin 32.2 pg (25-34); Mean Corpuscular Hgb Conc 34.5 g/dL (32-36); Mean Corpuscular Volume 93.4 fL (80-100); Mean Platelet Volume 9.9 fL (7.4-10.4); Monocytes # (auto) 1.34 K/uL (0.11-0.59); Monocytes % (auto) 12.7 %; Neutrophils # (auto) 5.83 K/uL (1.4-6.5); Neutrophils % (auto) 55.4 %; Platelet Count 289 K/uL (130-400); RDW Coefficient of Variation 11.9 % (11.5-14.5); RDW Standard Deviation 40.2 fL (36.4-46.3); White Blood Count 10.52 K/uL (4.8-10.8)
[2021-07-10 07:31] LABS: BUN Creatinine Ratio 15.2 (10-20); C Reactive Protein 8.55 mg/dl (0-0.5); Calcium 8.7 mg/dl (8.5-10.1); Creatinine Clr Calc Pharmacy 151.6 ml/min; Est GFR (African American) 121.4 ml/min; Est GFR (Non-African American) 104.7 ml/min; Potassium 3.3 mmol/L (3.5-5.1)
--- NOTE | 2021-07-10 08:35 | Hospitalist Progress Note ---
Date of Service July 10, 2021 Assessment & Plan (1) Sepsis: Plan: present on admission with tachycardia and leukocytosis treated and resolved Plan: Left DM foot infection Necrotic soft tissue infection -Surgical management per Orthopedic surgery -ESR-68, CRP - 12.9 -improved leukocytosis, trend CBC, BMP -deep tissue culture sent yesterday--> +group B strep and yeast (not pete) -Continue daptomycin and zosyn. Will consult ID for antibiotic management -MRI left foot negative for osteomyelitis (unlike findings on CT), findings of cellulitis Newly diagnosed poorly controlled DM -HA1c 10.3% -He is currently on insulin, with new diagnosis. DM educator and glycemic pharmacist consulted Poorly controlled HTN -at home, was previously on lisinopril 40mg daily and HCTZ 25mg daily -here is only on lisinopril 40mg. HCTZ 25mg resumed 07/09. -better BP control today DVT ppx resume lovenox post op Admission and Anticipated Discharge Date Admission Date: July 09, 2021 Subjective Patient feels well. Remains afebrile He is hopefully optimistic about surgery and avoiding toe amputation Physical Exam Physical Exam: Overweight, no acute distress, pleasant and comfortable Respiratory: breathing comfortably on room air, no wheezing/rhonchi/rales Cardiovascular: regular rate and rhythm, no murmurs/rubs Gastrointestinal (Abdomen): soft,non tender, non distended Musculoskeletal: left foot infection --pictures from today reviewed. Currently foot is dressed--dressing is clean/dry/intact Skin: left foot erythema improved, areas of skin breakdown around 1st big toe noted in photos Neurologic: awake, alert, spontaneously moving extremities Results & Data Results & Data ([facility]) Vital Signs (Past 12 Hours) Vital Signs Temp Pulse Pulse Resp BP Pulse Ox Pulse Ox 07/10/21 07:38 36.9 C 93 H 18 145/92 H 96 07/10/21 07:06 87 07/10/21 07:00 92 07/10/21 03:06 36.7 C 96 H 18 149/97 H 94 07/10/21 02:06 96 H 07/09/21 22:41 36.8 C 78 18 149/83 H 93 Laboratory Results Short CBC 07/10/21 Range/Units 06:37 WBC 10.52 (4.8-10.8) K/uL Hgb 13.2 L (14.0-18.0) g/dL Hct 38.3 L (42-52) % Plt Count 289 (130-400) K/uL [facility] 07/10/21 06:37 Sodium 136 Potassium 3.3 L Chloride 98 Carbon Dioxide 31 BUN 12 Creatinine 0.79 Glucose 139 H Calcium 8.7 Medications Administered Current Inpatient Medications Acetaminophen (Acetaminophen 325 Mg Tab) 650 mg PO Q4H PRN PRN Reason: Pain or Fever Stop: 08/08/21 03:49 Last Admin: 07/09/21 20:41 Dose: 650 mg Documented by: Dextrose (Dextrose 50% 50 Ml Syringe) 25 - 50 ml IV UD PRN; Protocol PRN Reason: Hypoglycemia Protocol Stop: 08/08/21 03:49 Famotidine (Famotidine 10 Mg Tablet) 10 mg PO HS PRN PRN Reason: HEARTBURN/INDIGESTION Stop: 08/08/21 03:49 Glucagon (Glucagon For Inj 1 Mg Vial) 1 mg SQ UD PRN; Protocol PRN Reason: Hypoglycemia Protocol Stop: 08/08/21 03:49 Glucose (Glucose 10 Tabs/Tube) 4 - 8 tabs PO UD PRN; Protocol PRN Reason: Hypoglycemia Protocol Stop: 08/08/21 03:49 Glucose (Glucose 40% Gel 15 Gm Tube) 15 - 30 gm PO UD PRN; Protocol PRN Reason: Hypoglycemia Protocol Stop: 08/08/21 03:49 Hydrochlorothiazide (Hydrochlorothiazide 25 Mg Tab) 25 mg PO QAM KATHERINE Stop: 08/09/21 08:59 Last Admin: 07/10/21 09:06 Dose: 25 mg Documented by: Promethazine HCl 12.5 mg/ (Sodium Chloride) 50.5 mls @ 202 mls/hr IV Q6H PRN PRN Reason: Nausea And Vomiting Stop: 08/08/21 03:49 Piperacillin Sod/Tazobactam (Sod 4.5 gm/ Dextrose) 120 mls @ 30 mls/hr IV Q8H K[facility]ERINE; Protocol Stop: 07/16/21 05:59 Last Admin: 07/10/21 13:31 Dose: 30 mls/hr Documented by: Daptomycin 500 mg/ Syringe 10 mls @ 5 mls/min IV Q24H [facility]ERINE; Protocol Stop: 08/20/21 21:59 Last Admin: 07/09/21 22:47 Dose: 5 mls/min Documented by: Insulin Aspart (Insulin Aspart Per Unit) 0 units SC Q6 KATHERINE Stop: 08/09/21 05:59 Last Admin: 07/10/21 12:01 Dose: Not Given Documented by: Insulin Glargine (Insulin Glargine Solostar 100 Units/Ml 3 Ml Pen) 30 units SC HS KATHERINE Stop: 08/08/21 20:59 Last Admin: 07/09/21 20:43 Dose: 30 units Documented by: Lisinopril (Lisinopril 40 Mg Tab) 40 mg PO DAILY KATHERINE Stop: 08/08/21 08:59 Last Admin: 07/10/21 09:07 Dose: 40 mg Documented by: Miscellaneous (Carbohydrates For Hypoglycemia ) 15 - 30 gm PO UD PRN PRN Reason: Hypoglycemia Protocol Stop: 08/08/21 03:49 Miscellaneous Information (Piperacill/Tazobac Consult Active) 1 ea N/A UD PRN PRN Reason: Consult Stop: 08/07/21 22:17 Miscellaneous Information (Daptomycin Consult Active) 1 ea N/A UD PRN PRN Reason: Consult Stop: 08/07/21 22:17 Miscellaneous Information (Pharmacy Glycemic Mgmt Consult) 1 ea N/A UD PRN PRN Reason: Consult Stop: 08/08/21 13:42 Morphine Sulfate (Morphine Sulfate 4 Mg/Ml 1 Ml Carp\Vial) 4 mg IV Q4H PRN PRN Reason: Pain Stop: 07/23/21 03:49 Oxycodone HCl (Oxycodone Hcl Ir 5 Mg Tab (Immediate Release)) 5 mg PO Q4H PRN PRN Reason: Pain Stop: 07/23/21 03:49 Saccharomyces Boulardii (Saccharomyces Boulardii 250 Mg Cap) 250 mg PO DAILY [facility] Stop: 08/08/21 08:59 Last Admin: 07/10/21 09:07 Dose: 250 mg Documented by:
[2021-07-10] MEDS ORDERED: POTASSIUM CHLORIDE CRTAB 20 MEQ TABCR PO STA (08:50)
[2021-07-10] MEDS: hydroCHLOROthiazide 25 MG TAB PO SCH (09:06)
[2021-07-10] MEDS: lisinopril 40 MG TAB PO SCH (09:07)
[2021-07-10] MEDS: SACCHAROMYCES BOULARDII 250 MG CAP PO SCH (09:07)
--- NOTE | 2021-07-10 11:31 | Orthopedic Progress Note ---
Date of Service July 10, 2021 Assessment & Plan (1) Cellulitis of foot, left: Plan: Continue current antibiotics. MRI showing no evidence of osteomyelitis as suspected on CT scan. Results as noted below. WBC count down to 10. CRP down from 12.9 to 8.5 Planning for irrigation debridement late this afternoon. Continue n.p.o. status. Admission and Anticipated Discharge Date Admission Date: July 09, 2021 Subjective Patient sitting up in bed awake and alert. No complaints this morning. Denies pain in his left foot. Physical Exam Physical Exam: Dressing showing saturation on the dorsum and plantar aspects. Patient states the dressing has not been changed since I changed it yesterday. Dressing removed. Continues to have cellulitis resolving that had initially gone above the ankle which is now looking better. He continues to have the necrotic wound on the dorsum of the foot between the first and second toe webspaces. Moderate swelling of the great toe with erythema. Second toe with swelling and erythema as well. Esha Cummings RN look at the wound. When spreading the first and second toes apart it is noted that the wound does to go deeply into the foot from this aspect. There is a foul odor this morning. Superficial macerated skin debrided. Patient continues with fairly dense neuropathy. No changes to the chronic ulcer on the plantar surface of the foot. Aquacel Ag was placed in between the first and second toes into the wound. Remainder of dressing is 4 x 4's, ABDs, Kerlix, Prashanth wrap. Results & Data ([facility]) Vital Signs (Past 12 Hours) Vital Signs Temp Pulse Pulse Resp BP Pulse Ox Pulse Ox 07/10/21 07:38 36.9 C 93 H 18 145/92 H 96 07/10/21 07:06 87 07/10/21 07:00 92 07/10/21 03:06 36.7 C 96 H 18 149/97 H 94 07/10/21 02:06 96 H Diagnostic Findings Laboratory Results WBC 10.52 K/uL (4.8-10.8) 07/10/21 06:37 RBC 4.10 M/uL (4.7-6.1) L 07/10/21 06:37 Hgb 13.2 g/dL (14.0-18.0) L 07/10/21 06:37 Hct 38.3 % (42-52) L 07/10/21 06:37 MCV 93.4 fL (80-100) 07/10/21 06:37 MCH 32.2 pg (25-34) 07/10/21 06:37 MCHC 34.5 g/dL (32-36) 07/10/21 06:37 RDW Std Deviation 40.2 fL (36.4-46.3) 07/10/21 06:37 RDW Coeff of Edison 11.9 % (11.5-14.5) 07/10/21 06:37 Plt Count 289 K/uL (130-400) 07/10/21 06:37 MPV 9.9 fL (7.4-10.4) 07/10/21 06:37 Immature Gran % (Auto) 1.2 % 07/10/21 06:37 Neut % (Auto) 55.4 % 07/10/21 06:37 Lymph % (Auto) 29.1 % 07/10/21 06:37 [place] % (Auto) 12.7 % 07/10/21 06:37 Eos % (Auto) 0.8 % 07/10/21 06:37 Baso % (Auto) 0.8 % 07/10/21 06:37 Neut # (Auto) 5.83 K/uL (1.4-6.5) 07/10/21 06:37 Lymph # (Auto) 3.06 K/uL (1.2-3.4) 07/10/21 06:37 [place] # (Auto) 1.34 K/uL (0.11-0.59) H 07/10/21 06:37 Eos # (Auto) 0.08 K/uL (0-0.5) 07/10/21 06:37 Baso # (Auto) 0.08 K/uL (0-0.2) 07/10/21 06:37 Immature Gran # (Auto) 0.13 K/uL (0.00-0.02) H 07/10/21 06:37 ESR 68 mm/hr (0-20) H 07/10/21 06:37 PT 10.4 Seconds (9.0-12.0) 07/08/21 21:03 INR 1.0 (0.9-1.1) 07/08/21 21:03 APTT 27.5 Seconds (21.0-31.0) 07/08/21 21:03 PTT Ratio 1.0 07/08/21 21:03 Sodium 136 mmol/L (136-145) 07/10/21 06:37 Potassium 3.3 mmol/L (3.5-5.1) L 07/10/21 06:37 Chloride 98 mmol/L (98-107) 07/10/21 06:37 Carbon Dioxide 31 mmol/L (21-32) 07/10/21 06:37 Anion Gap 7 (3-11) 07/10/21 06:37 BUN 12 mg/dl (6-23) 07/10/21 06:37 Creatinine 0.79 mg/dl (0.6-1.4) 07/10/21 06:37 Est Cr Clr Drug Dosing 151.6 ml/min 07/10/21 06:37 Est GFR ( Amer) 121.4 ml/min 07/10/21 06:37 Est GFR (Non-Af Amer) 104.7 ml/min 07/10/21 06:37 BUN/Creatinine Ratio 15.2 (10-20) 07/10/21 06:37 Glucose 139 mg/dl (70-99(Fasting)) H 07/10/21 06:37 POC Glucose 133 mg/dl (70-99) H 07/10/21 05:49 Estimat Average Glucose 249 mg/dl 07/08/21 21:09 Hemoglobin A1c 10.3 % (4.5-5.6) H 07/08/21 21:09 Lactate 1.1 mmol/L (0.4-2.0) 07/08/21 21:03 Calcium 8.7 mg/dl (8.5-10.1) 07/10/21 06:37 Magnesium 2.0 mg/dl (1.7-2.4) 07/08/21 21:03 Total Bilirubin 0.7 mg/dl (0.2-1.0) 07/08/21 21:03 AST 20 U/L (13-39) 07/08/21 21:03 ALT 28 U/L (7-52) 07/08/21 21:03 Alkaline Phosphatase 64 U/L (34-104) 07/08/21 21:03 C-Reactive Protein 8.55 mg/dl (0-0.5) H 07/10/21 06:37 Total Protein 7.7 gm/dl (6.0-8.3) 07/08/21 21:03 Albumin 4.1 gm/dl (3.4-5.0) 07/08/21 21:03 Globulin 3.6 gm/dl (2.5-4.0) 07/08/21 21:03 Albumin/Globulin Ratio 1.1 (0.9-2) 07/08/21 21:03 TSH 4.031 uIu/ml (0.300-4.500) 07/08/21 21:03 SARS-CoV-2, RNA, NAAT NEGATIVE (NEGATIVE) 07/08/21 22:25 Impressions Foot X-Ray 07/08/21 21:33 LEFT FOOT 3 VIEWS CLINICAL HISTORY: Wound infection. FINDINGS: 3 views of the left foot are obtained. No prior studies are available for comparison at the time of dictation. The skeletal structures are well mineralized. No fracture is seen. There is no bony erosion or periostitis. Moderate osteoarthritic change is noted at the first metatarsophalangeal joint. Soft tissue edema is seen throughout the forefoot. A wound is suspected along the plantar aspect of the forefoot. Soft tissue gas is present in the forefoot, greatest in the first digit. No radiodense foreign body is identified. IMPRESSION: 1. No acute bony abnormality is identified. 2. Soft tissue edema, a plantar wound, and soft tissue gas are present in the forefoot. Correlate clinically for evidence of necrotizing infection. Electronically signed by: De Reynoso M.D. 07/09/2021 7:[address] 07/08/21 22:18 CT SCAN OF THE LEFT FOOT WITH IV CONTRAST CLINICAL HISTORY: Cellulitis. COMPARISON STUDY: Radiographs of left foot dated 07/08/2021. TECHNIQUE: Following the IV administration of 95 cc of Optiray 320, CT scan of the left foot is performed from the ankle to the base of the foot. Images are reviewed in the axial, sagittal, and coronal planes. IV contrast was admi nistered without complication. A dose lowering technique was utilized adhering to the principles of ALARA. CT DOSE: 218.67 mGy.cm FINDINGS: The skeletal structures are well mineralized. There is no evidence of fracture. The ankle mortise is intact. Moderate osteoarthritic change is seen at the first metatarsophalangeal joint. Mild erosive change is seen at the plantar base of the first distal phalanx on axial image #323. This suggests osteomyelitis. No additional foci of bony erosion are identified. An os trigonum is incidentally noted. Diffuse soft tissue edema is present throughout the f orefoot, with a wound suggested along the plantar aspect of the second metatarsal. Soft tissue gas is present throughout the forefoot, greatest in the first and second toes. This suggests necrotizing infection. No organized/drainable fluid collection is seen to indicate abscess. No radiodense foreign body is identified. The Achilles tendon is intact as imaged. IMPRESSION: 1. There is a plantar wound in the forefoot with evidence of cellulitis/necrotizing soft tissue infection. 2. Erosive change is present along the plantar base of the first distal phalanx. This is strongly suspicious for osteomyelitis. 3. No additional foci of bony erosion are identified. 4. No fracture is seen. 5. There is no organized/drainable fluid collection identified to indicate abscess. ACT 112: Negative or not required by law. Dictated: 07/09/2021 7:53 AM Transcribed: 07/09/2021 8:29 AM Lisa [id number] [email or web address] Electronically signed by: De Reynoso M.D. 07/09/2021 8:32 AM Foot MRI 07/09/21 14:33 MR foot LT wo/w con CLINICAL HISTORY: Pain and swelling of the great toe. Evaluate for osteomyelitis 1st distal phalanx. COMPARISON: CT of the left foot from 07/08/2021 and standard radiographs from 07/08/2021 TECHNIQUE: Multiplanar multisequence images of the distal left foot were performed with and without IV contrast. Contrast Volume: 11.5 ml of Gadavist FINDINGS: Osseous structures: Homogeneous marrow signal is seen throughout the imaged bones of the foot. There is no evidence for marrow edema or marrow replacement. There is no abnormal marrow enhancement following contrast administration. No acute osseous pathology is seen. There is no MR evidence for osteomyelitis as suggested by CT. Joints: There is marked narrowing and degenerative change at the first MTP joint. There is evidence for a cyst small joint effusion at the IP joint of the right toe. The remaining imaged joints of the foot are intact. Tendons: The extensor tendons along the dorsum of the foot and the flexor tendons along the plantar aspect of the foot are intact. The Achilles' tendon appears normal. Plantar fascia appears normal. Ligaments: The imaged ligaments of the foot are intact. Soft tissues: There is diffuse subcutaneous edema seen surrounding the great toe and second toe with extension along the dorsum of the foot. Is also edema seen within the interosseous muscles and to a lesser extent along the plantar aspect of the foot. There is no focal fluid collection or abscess. IMPRESSION: 1. No MR evidence for osteomyelitis as suspected on CT. 2. However, there is an effusion of the IP joint of the great toe. No erosive changes are seen with no definite evidence for septic arthritis. 3. There is diffuse subcutaneous soft tissue swelling of first and second toes and extending proximally with findings characteristic of cellulitis. 4. No focal fluid collection or abscess is seen. ACT 112: Negative or not required by law. Electronically signed by: Marquis Holguin M.D. 07/09/2021 5:27 PM
--- NOTE | 2021-07-10 11:39 | Pharmacy Report ---
Pharmacy Glycemic Short Note 2 - Date of Service July 10, 2021 - Glycemic Short BSG Results (Last 24 hours): 07/09/21 07/09/21 07/09/21 13:13 17:45 20:31 Glucose POC Glucose 222 H 225 H 191 H 07/10/21 07/10/21 07/10/21 00:06 05:49 06:37 Glucose 139 H POC Glucose 117 H 133 H OUTPATIENT ANTIDIABETIC REGIMEN: * None * HbA1c = 10.3% ASSESSMENT: * 51 y/o M admitted for L foot cellulitis/ Osteomyelitis. Patient was found to have elevated blood sugars above 350 mg/dl and A1c above 10%. He does not seem to have been on any anti-diabetic meds prior to admission. * Mr. Bolden was started on Lantus 30 units at 02:05 on 07/09 and continued the same at HS yesterday. * BSGs trended down to 222 mg/dl at lunch yesterday. Pharmacy was consulted for glycemic management at that time. * Novolog CF and CR was tightened yesterday at dinner based on wt and stress of 2. BSGs further trended down to 117 mg/dl at midnight. * He is NPO this AM in anticipation of I&D of L foot. * Fasting BSG = 133 mg/dl. Continued same Novolog parameters today. PLAN FOR INPATIENT GLYCEMIC CONTROL: * Basal insulin * Lantus 30 units SQ HS * Bolus insulin * NovoLog per scale ACHS or Q6hrs while NPO * Goal Range: Low 110 mg/dL - High 140 mg/dL * Correction Factor: 20 mg/dL/unit * Nutritional / Prandial insulin per carb ratio of 1 unit per 7 grams CHO consumed PLAN FOR DISCHARGE: * TBD
[2021-07-10] MEDS: DAPTOmycin 500 MG in SYRINGE 0 ML IV SCH (22:31)
[2021-07-10] MEDS: INSULIN GLARGINE SOLOSTAR 100 UNITS/ML 3 ML PEN SC SCH (22:53)
[2021-07-11] MEDS: INSULIN ASPART PER UNIT SC SCH ×5 (03:16→22:07)
[2021-07-11] MEDS: PIPERACILLIN/TAZOBACTAM 4.5 GM in DEXTROSE 5% 100 ML IV SCH ×2 (06:05→13:30)
[2021-07-11] MEDS ORDERED: MIDAZOLAM HCL 1 MG/ML 2ML VIAL ONE (06:45)
[2021-07-11] MEDS ORDERED: PROPOFOL IV EMULSION 10 MG/ML 20 ML VIAL IV ONE (06:45)
[2021-07-11] MEDS ORDERED: LIDOCAINE 2% 2 ML VIAL/AMP(20MG/ML) INFIL ONE (06:45)
[2021-07-11] MEDS ORDERED: fentaNYL citrate 100 MCG/2 ML VIAL ONE ×2 (06:45→08:23)
[2021-07-11] MEDS ORDERED: BUPIVACAINE 0.5 % 5 MG/1 ML MPF 30ML VIAL ONE (07:02)
--- NOTE | 2021-07-11 07:25 | History & Physical Bridge Note ---
Date of Service July 11, 2021 History & Physical Bridge Note I have examined the patient, reviewed the History & Physical and in the interval since the performance of the History & Physical I have noted the following changes of clinical significance: no changes noted
[2021-07-11] MEDS ORDERED: INSULIN GLARGINE SOLOSTAR 100 UNITS/ML 3 ML PEN SC ONE (07:30)
[2021-07-11] MEDS ORDERED: ceFAZolin 330 MG/ML 1 GM VIAL ONE (07:31)
--- NOTE | 2021-07-11 07:42 | Anesthesiology Consultation ---
Date of Service July 11, 2021 Assessment & Plan Chart Review Chart Review: Acceptable Risk for Surgery and Patient NOT seen in Pre Admission Testing Consults Requested none ASA ASA3 Proposed Anesthesia Anesthesia Type: General Risk / Benefits Reviewed With: PT / POA / Parent / Guardian, Accepts Plan and Informed Consent Obtained Additional Comments: covid test neg. History Surgery Operation Date: 07/10/21 09:50 Proposed Procedures p Left Foot Irrigation and Debridement, Possible Amputation 1st Distal Phalanx - Joseph Newman DO Operation Date: 07/11/21 07:15 Proposed Procedures p Right Foot Incision and Drainage Possible Amputation - Joseph Newman DO Height/Weight Height: 6 ft 3 in Weight: 111.5 kg Allergies Allergy/AdvReac Type Severity Reaction Status Date / Time No Known Allergies Allergy Verified 07/08/21 23:39 Medications Home Medications Medication Instructions Recorded Confirmed Last Taken cephalexin 500 mg capsule 500 mg PO TID 07/08/21 07/08/21 07/08/21 famotidine 10 mg tablet 10 mg PO HS PRN 07/08/21 07/08/21 Unknown hydrochlorothiazide 25 mg tablet 25 mg PO DAILY 07/08/21 07/08/21 07/08/21 ibuprofen 200 mg tablet (Advil) 400 mg PO DIRECTED PRN 07/08/21 07/08/21 Unknown lisinopril 40 mg tablet 40 mg PO DAILY 07/08/21 07/08/21 07/08/21 Active Medications Generic Name Dose Route Start Last Admin Trade Name Freq PRN Reason Stop Dose Admin Acetaminophen 650 mg 07/09/21 03:50 07/09/21 20:41 Acetaminophen 325 Mg Tab PO 08/08/21 03:49 650 mg Q4H PRN Administration Pain or Fever Hydrochlorothiazide 25 mg 07/10/21 09:00 07/10/21 09:06 Hydrochlorothiazide 25 Mg Tab PO 08/09/21 08:59 25 mg QAM KATHERINE Administration Piperacillin Sod/Tazobactam 120 mls @ 30 mls/hr 07/09/21 06:00 07/11/21 06:05 Sod 4.5 gm/ Dextrose IV 07/16/21 05:59 30 mls/hr Q8H KATHERINE Administration Protocol Daptomycin 500 mg/ Syringe 10 mls @ 5 mls/min 07/09/21 22:00 07/10/21 22:31 IV 08/20/21 21:59 5 mls/min Q24H KATHERINE Administration Protocol Insulin Aspart 0 units 07/10/21 06:00 07/11/21 03:16 Insulin Aspart Per Unit SC 08/09/21 05:59 Not Given Q6 KATHERINE Insulin Glargine 30 units 07/09/21 21:00 07/10/21 22:53 Insulin Glargine Solostar 100 Units/Ml 3 Ml Pen SC 08/08/21 20:59 30 units HS KATHERINE Administration Lisinopril 40 mg 07/09/21 09:00 07/10/21 09:07 Lisinopril 40 Mg Tab PO 08/08/21 08:59 40 mg DAILY KATHERINE Administration Saccharomyces Boulardii 250 mg 07/09/21 09:00 07/10/21 09:07 Saccharomyces Boulardii 250 Mg Cap PO 08/08/21 08:59 250 mg DAILY KATHERINE Administration NPO Date Last Intake of Fluids: 07/10/21 Time Last Intake of Fluids: 23:30 Last Intake of Fluids Comment: WATER INTAKE Date Last Intake of Solids: 07/10/21 Time Last Intake of Solids: 22:30 Last Intake of Solids Comment: NA Past Medical History Medical History Hypertension Scoliosis Exercise / Class Metabolic Activity II 4-5 Yardwork/Stairs/Walk up hill Past Anesthesia History No Hx of Anesthesia Complications and No Family Hx of Anesthesia Complications History of PONV No Hx of PONV and No Hx of Motion Sickness Social History Smoking Status: Never smoker Hx Substance Use: No Physical Exam Vital Signs Last Vital Signs Temp 36.8 C 07/11/21 07:09 Pulse 87 07/11/21 07:26 Resp 20 07/11/21 07:09 BP 141/99 H 07/11/21 07:09 Pulse Ox 98 07/11/21 07:09 Constitutional + obese ENMT Mouth: no dentition abnormality Thyromental Distance: > or= 3.5 Finger Breadths Mallampati Class: II Neck normal visual inspection and trachea midline; neck extension not limited Respiratory normal respiratory effort Auscultation: lungs clear to auscultation bilaterally Cardiovascular Rate/Rhythm: regular rate and regular rhythm Heart Sounds: no murmur Vessels: no carotid bruit Musculoskeletal Spine: normal cervical ROM Extremities: + extremities abnormal to inspection (diabetic left foot) Neurologic moves all extremities Motor/Sensory: + sensory deficit (diabetic peripheral neuropathy bilateral feet) Psychiatric Orientation: alert and oriented x 3 Testing Laboratory Results 07/10/21 06:37 07/10/21 06:37 PT 10.4 Seconds (9.0-12.0) 07/08/21 21:03 INR 1.0 (0.9-1.1) 07/08/21 21:03 APTT 27.5 Seconds (21.0-31.0) 07/08/21 21:03 Hemoglobin A1c 10.3 % (4.5-5.6) H 07/08/21 21:09 07/08/21 23:41 Aerobic Blood Culture - Preliminary Blood No growth in Aerobic bottle after 48 hours. Anaerobic Blood Culture - Preliminary No growth in Anaerobic bottle after 48 hours. 07/08/21 21:03 Aerobic Blood Culture - Preliminary Blood No growth in Aerobic bottle after 48 hours. Anaerobic Blood Culture - Preliminary No growth in Anaerobic bottle after 48 hours. 07/09/21 02:46 Gram Stain - Final Foot,Left Deep Wound Culture - Preliminary Group B Beta Strep Yeast not Bebe albicans/dub 07/11/21 07/11/21 07/11/21 07:27 06:14 03:14 POC Glucose 160 H 155 H 167 H Electrocardiogram Date: 07/08/21 Findings: + ST @ (at 118)
[2021-07-11] MEDS ORDERED: HYDROmorphone INJ 1 MG/ML SYRINGE IV PRN (07:46)
[2021-07-11] MEDS ORDERED: FLUMAZENIL 0.1 MG/1 ML 10 ML VIAL IV PRN (07:46)
[2021-07-11] MEDS ORDERED: LABETALOL HCL IV 5 MG/ML 20ML IV PRN (07:46)
[2021-07-11] MEDS ORDERED: fentaNYL citrate 100 MCG/2 ML VIAL IV PRN (07:46)
[2021-07-11] MEDS ORDERED: PROMETHAZINE HCL 12.5 MG in SODIUM CHLORIDE 0.9% 50 ML IV PRN (07:46)
[2021-07-11] MEDS ORDERED: NALOXONE HCL 0.4 MG/1 ML VIAL/CARP IV PRN ×2 (07:46→09:53)
[2021-07-11] MEDS ORDERED: ONDANSETRON INJ 2 MG/ML 2 ML VIAL IV PRN ×2 (07:46→09:53)
[2021-07-11] MEDS ORDERED: ePHEDrine sulfate 50 MG/ML AMP IV PRN (07:46)
[2021-07-11] MEDS ORDERED: ATROPINE SULFATE 0.1 MG/ML 10ML SYR IV PRN (07:46)
[2021-07-11] MEDS ORDERED: HYDROmorphone INJ 0.5 MG/0.5 ML SYR IV PRN (09:02)
--- NOTE | 2021-07-11 09:24 | Post Operative Brief Note ---
Immediate Post Op Note v1 Date of Surgery July 11, 2021 Pre & Post Diagnosis Operation Date: 07/10/21 09:50 <No data on this case meets the specified criteria> Operation Date: 07/11/21 07:15 Pre-Op Diagnosis: Left foot abscess first metatarsal phalangeal joint, abscess second metatarsal phalangeal joint, plantar diabetic neuropathic ulcer great toe 0.9 x 0.8 x 0.6 cm, plantar diabetic neuropathic ulcer second metatarsal head 1.3 x 1.0 x 1.4 cm, severe cellulitis foot Post-Op Diagnosis: Left foot abscess first metatarsal phalangeal joint, abscess second metatarsal phalangeal joint, plantar diabetic neuropathic ulcer great toe 0.9 x 0.8 x 0.6 cm, plantar diabetic neuropathic ulcer second metatarsal head 1.3 x 1.0 x 1.4 cm, tenosynovitis extensor hallucis longus, tenosynovitis second extensor tendon, severe cellulitis foot I identified the patient and participated in the time-out.: Yes Procedure Operation Date: 07/10/21 09:50 <No data on this case meets the specified criteria> Operation Date: 07/11/21 07:15 Actual Procedures p 1. Evacuation of Abscess first MTP joint, 2. Evacuation of Abscess of 2nd MTP joint, 3. Tenosynovectomy second extensor tendon, 4. Irrigation and debridement of plantar diabetic neuropathic ulcer left great toe 0.9 x 0.8 x 0.6cm including skin, subcutaneous, fascia, joint capsule 5. Irrigation and debridement of plantar diabetic neuropathic ulcer left second metatarsal head 1.3 x 1.0 x 1.4cm including skin, subcutaneous, fascia, joint capsule 6. Tenosynovectomy extensor hallucis longus tendon, 7. Tenosynovectomy second extensor tendon (Left) - Joseph Newman DO Surgeon Joseph Newman DO Manager Spanish None Estimated Blood Loss 2 Findings Consistent with Post-Op Diagnosis Specimens Aerobic, anaerobic, Gram stain first intermetatarsal space Septic tenosynovitis EHL and second extensor tendon for pathology Drains Other (1/4 inch iodoform gauze drains x6 separate sites) Anesthesia Type General Regional Complications none Disposition Accompanied Patient To Recovery: Yes
--- NOTE | 2021-07-11 09:52 | Anesthesiology Progress Note ---
Date of Service July 11, 2021 Anesthesia Post Procedure Vital Signs Vital Signs: Temp Pulse Pulse Pulse Pulse Resp BP 07/11/21 09:45 36.5 C 88 20 07/11/21 09:35 91 H 20 07/11/21 09:25 92 H 18 07/11/21 09:18 36.7 C 89 17 121/85 07/11/21 07:26 87 07/11/21 07:09 36.8 C 94 H 20 07/11/21 03:05 36.7 C 86 20 121/74 07/10/21 22:00 37.2 C 97 H 20 07/10/21 19:00 37.5 C 104 H 18 07/10/21 15:17 108 H 07/10/21 14:56 37.0 C 104 H 16 07/10/21 11:34 37.1 C 93 H 16 BP Pulse Ox 07/11/21 09:45 130/85 95 07/11/21 09:35 135/84 94 07/11/21 09:25 120/79 98 07/11/21 09:18 97 07/11/21 07:26 07/11/21 07:09 141/99 H 98 07/11/21 03:05 93 07/10/21 22:00 134/90 95 07/10/21 19:00 154/84 H 97 07/10/21 15:17 07/10/21 14:56 133/84 95 07/10/21 11:34 151/104 H 97 Transfer of Care Handoff Completed per policy Notes Mental Status: alert / awake / arousable Patient Amnestic to Procedure: Yes Nausea / Vomiting: adequately controlled Pain: adequately controlled Airway Patency, RR, SpO2: stable & adequate BP & HR: stable & adequate Hydration State: stable & adequate Anesthetic Complications: no major complications apparent
[2021-07-11] MEDS ORDERED: MAGNESIUM HYDROXIDE SUSP 30 ML UDC PO PRN (09:53)
[2021-07-11] MEDS ORDERED: bisacodyL 10 MG SUPP PR PRN (09:53)
[2021-07-11] MEDS ORDERED: SODIUM CHLORIDE 0.9% 1000ML 1,000 ML IV SCH (09:53)
[2021-07-11] MEDS: SACCHAROMYCES BOULARDII 250 MG CAP PO SCH (10:16)
[2021-07-11] MEDS: hydroCHLOROthiazide 25 MG TAB PO SCH (10:17)
[2021-07-11] MEDS: lisinopril 40 MG TAB PO SCH (10:17)
--- NOTE | 2021-07-11 10:48 | Operative Report (OR) ---
DATE OF PROCEDURE: 07/11/2021. PREOPERATIVE DIAGNOSES: 1. Left foot abscess, first metatarsophalangeal joint. 2. Left foot abscess second metatarsophalangeal joint. 3. Plantar diabetic neuropathic ulcer great toe 0.9 x 0.8 x 0.6 cm. 4. Plantar diabetic neuropathic ulcer, second metatarsal head 1.3 x 1.0 x 1.4 cm. 5. Severe cellulitis, left foot. POSTOPERATIVE DIAGNOSES: 1. Left foot abscess, first metatarsophalangeal joint. 2. Left foot abscess second metatarsophalangeal joint. 3. Plantar diabetic neuropathic ulcer great toe 0.9 x 0.8 x 0.6 cm. 4. Plantar diabetic neuropathic ulcer, second metatarsal head 1.3 x 1.0 x 1.4 cm. 5. Severe cellulitis, left foot. 6. Septic tenosynovitis extensor hallus longus. 7. Septic tenosynovitis second extensor tendon. PROCEDURES: 1. Evacuation of abscess, first metatarsophalangeal joint. 2. Evacuation abscess second metatarsophalangeal joint. 3. Tenosynovectomy of the second extensor tendon. 4. Irrigation and debridement of plantar diabetic neuropathic ulcer, left great toe 0.9 x 0.8 x 0.6 cm including skin, subcutaneous tissue, fascia and joint capsule. 5. Irrigation and debridement of plantar diabetic neuropathic ulcer, left second metatarsal head abrahan suring 1.3 x 1.0 x 1.4 cm including skin, subcutaneous tissue, fascia and joint capsule. 6. Tenosynovectomy of the extensor hallucis longus tendon. 7. Tenosynovectomy of the second extensor tendon. SURGEON: Joseph Newman DO. HELICOPTER REPAIRER: None. ANESTHESIA: General, regional. SPECIMENS: Aerobic, anaerobic, Gram stain first intermetatarsal space, septic tenosynovitis, extenso r hallus longus and second extensor tendon for pathology. DRAINS: A 1/4-inch iodoform gauze drains x6, separate sites. COMPLICATIONS: None. BLOOD LOSS: 2 mL. PERTINENT HISTORY: This is a 51-year-old gentleman who presented to [facility] aft er a 3-month history of left foot pain and swelling with intermittent ulceration and healing of the l eft foot with self care and use of topical ointments. The patient then had approximately 1-week hist ory of worsening symptoms with cellulitis, swelling, pain and worsening ulceration and visual appeara nce of the left foot. The patient then presented to the Emergency Department, admitted to the [facility] service, placed on IV antibiotics. Advanced imaging was then performed noting severe infection throughout the left foot. He was then scheduled for surgery as indicated. All potential risks, benefits, complications, alternatives, rehab potential for incomplete relief sym ptoms, need for further surgery, DVT, PE, , persistent pain, swelling, scarring, weakness, neuro vascular injury, wound complications, need for further surgery or amputation were discussed with the patient. The patient decided to proceed with procedure as indicated. DESCRIPTION OF PROCEDURE: The patient was taken to the operative suite and placed supine on the oper ating room table. After review of consent and identification of proper operative site, the patient w as anesthetized, LMA was placed. Left lower extremity was then sterilely prepped and draped in the u sual fashion, elevated, and an Esmarch tourniquet was applied over sterile surgical towel at the leve l of the ankle. There was no exsanguination performed due to the infection. Next, after surgical timeout was performed, an incision was made on the dorsum of the left foot over the first metatarsophalangeal joint. The incision was deepened through skin and subcutaneous tissue. There was noted to be significant infectious tenosynovitis of the extensor hallucis longus was then retracted and protected and then incision was made adjacent to the first metatarsophalangeal joint a nd noted to be abscess fluid collection. This was evacuated. There was an open wound between the fi rst and second toes and reaching down to the level of the first intermetatarsal space, fluid collecti on presented and this was then sampled for specimens purulent discharge was noted. This was sent for aerobic, anaerobic, Gram stain. Next, the 15 blade was used to make an incision over the dorsum of the second metatarsophalangeal olegario nt. The incision was deepened through skin and subcutaneous tissue. Lakesha rakes were applied. There was noted to be obvious infectious tenosynovitis of the second extensor tendon, this was retracted a nd protected. Incision was made periarticular of the second metatarsophalangeal joint. Abscess flui d was encountered. This was evacuated. Next, a tenosynovectomy was then performed with a rongeur of the second extensor tendon and also of the extensor hallucis longus, removing any devitalized hypert rophic tenosynovium. This was sent for specimen for pathological evaluation. Next, the plantar neuropathic ulcer on the plantar medial aspect adjacent to the great toe 0.9 x 0.8 x 0.6 cm. This was then debrided with a 15-blade scalpel and curette including skin, subcutaneous ti ssue, fascia and joint capsule and devitalized necrotic tissue was excised. Next, a second ulceratio n under the second metatarsal head measuring 1.3 x 1.0 x 1.4 cm. We sharply debrided with a 15-blade scalpel and curette including the skin, subcutaneous tissue, fascia and joint capsule. Once grossly necrotic tissue was excised and all abscesses were cleared, curettage was then performed and a trans itional tissue adjacent to the abscess trying to maintain as much of the healthy tissue as possible. Partial skin loss was noted dorsally and plantar at the ulcer sites. Next, pulsatile lavage 3 liters with Ancef was then used to lavage the multiple incisions and ulcers until clear. Next, top gloves were changed, top towel was changed and multiple 1/4-inch iodoform gau ze packing drains were placed on 6 separate sites including the two plantar ulcers, a smaller punctat e area adjacent to the great toe and then the three dorsal incisions were packed. A 3-0 nylon was us ed to loosely approximate the tissue and next a dorsal forefoot field block was then performed with 0 .5% Marcaine plain. Next, a sterile compressive dressing was applied consisting of Xeroform gauze, s terile 4 x 4s, a loose Kerlix, ABD pads x2, cast roll and Prashanth wraps. The tourniquet was released, th e patient was awakened and taken to recovery in stable condition. Job ID: [id number]
[2021-07-11] MEDS: MULTIVITAMIN TAB PO SCH (11:13)
[2021-07-11] MEDS: DOCUSATE SODIUM 100 MG CAP PO SCH ×2 (11:13→20:31)
[2021-07-11] MEDS ORDERED: cefTRIAXone SODIUM 2,000 MG in DEXTROSE 5% 50 ML IV SCH (16:00)
--- NOTE | 2021-07-11 16:11 | Hospitalist Progress Note ---
Date of Service July 11, 2021 Assessment & Plan (1) Sepsis: Plan: present on admission with tachycardia and leukocytosis treated and resolved Plan: Left DM foot infection Necrotic soft tissue infection -Surgical management per Orthopedic surgery -ESR-68, CRP - 12.9 -improved leukocytosis, trend CBC, BMP -deep tissue culture sent yesterday--> +group B strep and yeast (not pete) -MRI left foot negative for osteomyelitis (unlike findings on CT), findings of cellulitis -OR today for extensive debridement -Appreciate ID input, d/c daptomycin and zosyn. Start ceftriaxone 2gm IV daily, fluconazole 400mg daily. Plan for 6 week course Newly diagnosed poorly controlled DM -HA1c 10.3% -He is currently on insulin, with new diagnosis. DM educator and glycemic pharmacist consulted Poorly controlled HTN -at home, was previously on lisinopril 40mg daily and HCTZ 25mg daily -here is only on lisinopril 40mg. HCTZ 25mg resumed 07/09. -better BP control today DVT ppx resume lovenox post op when cleared by ortho Disposition-- Patient will need 6 weeks IV antibiotics, will contact CM to start arranging for home infusion Admission and Anticipated Discharge Date Admission Date: July 09, 2021 Subjective Went for OR today He feels well, denies pain No fevers Physical Exam Physical Exam: Pleasant, no acute distress Respiratory: breathing comfortably on room air, no wheezing/rhonchi/rales Cardiovascular: regular rate and rhythm, no murmurs/rubs/gallops Gastrointestinal (Abdomen): soft, non tender, non distended Musculoskeletal: left foot is bandaged, dressing is clean/dry/intact Neurologic: awake, alert, spontaneously moving extremities Results & Data Results & Data ([facility]) Vital Signs (Past 12 Hours) Vital Signs Temp Pulse Pulse Pulse Resp BP BP 07/11/21 15:38 37.2 C 104 H 20 132/81 07/11/21 12:23 36.8 C 103 H 18 121/77 07/11/21 11:51 36.5 C 86 20 124/82 07/11/21 09:55 82 18 119/81 07/11/21 09:45 36.5 C 88 20 130/85 07/11/21 09:35 91 H 20 135/84 07/11/21 09:25 92 H 18 120/79 07/11/21 09:18 36.7 C 89 17 121/85 07/11/21 07:26 87 07/11/21 07:09 36.8 C 94 H 20 141/99 H Pulse Ox 07/11/21 15:38 93 07/11/21 12:23 93 07/11/21 11:51 96 07/11/21 09:55 94 07/11/21 09:45 95 07/11/21 09:35 94 07/11/21 09:25 98 07/11/21 09:18 97 07/11/21 07:26 07/11/21 07:09 98 Medications Administered Current Inpatient Medications Acetaminophen (Acetaminophen 325 Mg Tab) 650 mg PO Q4H PRN PRN Reason: Pain or Fever Stop: 08/08/21 03:49 Last Admin: 07/09/21 20:41 Dose: 650 mg Documented by: Aspirin (Aspirin 81 Mg Ectab) 81 mg PO BID [facility] Stop: 08/10/21 20:59 Bisacodyl (Bisacodyl 10 Mg Supp) 10 mg [place] DAILY PRN PRN Reason: Constipation Stop: 08/10/21 09:52 Dextrose (Dextrose 50% 50 Ml Syringe) 25 - 50 ml IV UD PRN; Protocol PRN Reason: Hypoglycemia Protocol Stop: 08/08/21 03:49 Docusate Sodium (Docusate Sodium 100 Mg Cap) 100 mg PO BID [facility] Stop: 08/10/21 09:59 Last Admin: 07/11/21 11:13 Dose: 100 mg Documented by: Famotidine (Famotidine 10 Mg Tablet) 10 mg PO HS PRN PRN Reason: HEARTBURN/INDIGESTION Stop: 08/08/21 03:49 Fluconazole (Fluconazole 100 Mg Tab) 400 mg PO DAILY [facility]; Protocol Stop: 08/22/21 15:59 Glucagon (Glucagon For Inj 1 Mg Vial) 1 mg SQ UD PRN; Protocol PRN Reason: Hypoglycemia Protocol Stop: 08/08/21 03:49 Glucose (Glucose 10 Tabs/Tube) 4 - 8 tabs PO UD PRN; Protocol PRN Reason: Hypoglycemia Protocol Stop: 08/08/21 03:49 Glucose (Glucose 40% Gel 15 Gm Tube) 15 - 30 gm PO UD PRN; Protocol PRN Reason: Hypoglycemia Protocol Stop: 08/08/21 03:49 Hydrochlorothiazide (Hydrochlorothiazide 25 Mg Tab) 25 mg PO QAM [facility] Stop: 08/09/21 08:59 Last Admin: 07/11/21 10:17 Dose: 25 mg Documented by: Hydromorphone HCl (Hydromorphone Inj 0.5 Mg/0.5 Ml Syr) 0.5 mg IV Q4H PRN PRN Reason: Pain Stop: 07/25/21 09:01 Promethazine HCl 12.5 mg/ (Sodium Chloride) 50.5 mls @ 202 mls/hr IV Q6H PRN PRN Reason: Nausea And Vomiting Stop: 08/08/21 03:49 Sodium Chloride (Nss 1000ml) 1,000 mls @ 80 mls/hr IV .[id number] [facility] Stop: 07/12/21 06:00 Last Admin: 07/11/21 10:47 Dose: Not Given Documented by: Ceftriaxone Sodium 2,000 mg/ (Dextrose) 70 mls @ 100 mls/hr IV DAILY [facility]; Protocol Stop: 08/22/21 15:59 Insulin Aspart (Insulin Aspart Per Unit) 0 units SC Q6 [facility] Stop: 08/09/21 05:59 Last Admin: 07/11/21 03:16 Dose: Not Given Documented by: Insulin Glargine (Insulin Glargine Solostar 100 Units/Ml 3 Ml Pen) 30 units SC [facility] Stop: 08/08/21 20:59 Last Admin: 07/10/21 22:53 Dose: 30 units Documented by: Lisinopril (Lisinopril 40 Mg Tab) 40 mg PO DAILY [facility] Stop: 08/08/21 08:59 Last Admin: 07/11/21 10:17 Dose: 40 mg Documented by: Magnesium Hydroxide (Magnesium Hydroxide Susp 30 Ml Udc) 30 ml PO Q6H PRN PRN Reason: Constipation Stop: 08/10/21 09:52 Miscellaneous (Carbohydrates For Hypoglycemia ) 15 - 30 gm PO UD PRN PRN Reason: Hypoglycemia Protocol Stop: 08/08/21 03:49 Miscellaneous Information (Pharmacy Glycemic Mgmt Consult) 1 ea N/A UD PRN PRN Reason: Consult Stop: 08/08/21 13:42 Morphine Sulfate (Morphine Sulfate 4 Mg/Ml 1 Ml Carp\Vial) 4 mg IV Q4H PRN PRN Reason: Pain Stop: 07/23/21 03:49 Multivitamins (Multivitamin Tab) 1 tab PO QAM [facility] Stop: 08/10/21 09:59 Last Admin: 07/11/21 11:13 Dose: 1 tab Documented by: Naloxone HCl (Naloxone Hcl 0.4 Mg/1 Ml Vial/Carp) 0.1 mg IV Q5M PRN PRN Reason: Oversedation/Resp Depression Stop: 08/10/21 09:52 Ondansetron HCl (Ondansetron Inj 2 Mg/Ml 2 Ml Vial) 4 mg IV Q6H PRN PRN Reason: Nausea And Vomiting Stop: 08/10/21 09:52 Oxycodone HCl (Oxycodone Hcl Ir 5 Mg Tab (Immediate Release)) 5 mg PO Q4H PRN PRN Reason: Pain Stop: 07/23/21 03:49 Saccharomyces Boulardii (Saccharomyces Boulardii 250 Mg Cap) 250 mg PO DAILY [facility] Stop: 08/08/21 08:59 Last Admin: 07/11/21 10:16 Dose: 250 mg Documented by:
[2021-07-11] MEDS: FLUCONAZOLE 100 MG TAB PO SCH (17:31)
[2021-07-11] MEDS: ACETAMINOPHEN 325 MG TAB PO PRN (18:20)
[2021-07-11] MEDS: ASPIRIN 81 MG ECTAB PO SCH (20:32)
[2021-07-11] MEDS: INSULIN GLARGINE SOLOSTAR 100 UNITS/ML 3 ML PEN SC SCH (20:35)
[2021-07-12] MEDS: FLUCONAZOLE 100 MG TAB PO SCH (07:43)
[2021-07-12] MEDS: ASPIRIN 81 MG ECTAB PO SCH ×2 (07:43→20:17)
[2021-07-12] MEDS: MULTIVITAMIN TAB PO SCH (07:43)
[2021-07-12] MEDS: lisinopril 40 MG TAB PO SCH (07:43)
[2021-07-12] MEDS: hydroCHLOROthiazide 25 MG TAB PO SCH (07:43)
[2021-07-12] MEDS: SACCHAROMYCES BOULARDII 250 MG CAP PO SCH (07:43)
[2021-07-12] MEDS: FAMOTIDINE 10 MG TABLET PO PRN (07:44)
[2021-07-12] MEDS: DOCUSATE SODIUM 100 MG CAP PO SCH ×2 (07:44→20:16)
[2021-07-12] MEDS: INSULIN ASPART PER UNIT SC SCH ×4 (08:19→20:15)
[2021-07-12 08:32] LABS: Basophils # (auto) 0.04 K/uL (0-0.2); Basophils % (auto) 0.4 %; Eosinophils # (auto) 0.06 K/uL (0-0.5); Eosinophils % (auto) 0.5 %; Hematocrit (blood only) 45.4 % (42-52); Hemoglobin 15.5 g/dL (14.0-18.0); Immature Granulocytes # (auto) 0.39 K/uL (0.00-0.02); Immature Granulocytes % (auto) 3.5 %; Lymphocytes # (auto) 2.87 K/uL (1.2-3.4); Lymphocytes % (auto) 25.7 %; Mean Corpuscular Hemoglobin 31.9 pg (25-34); Mean Corpuscular Hgb Conc 34.1 g/dL (32-36); Mean Corpuscular Volume 93.4 fL (80-100); Mean Platelet Volume 9.7 fL (7.4-10.4); Monocytes # (auto) 1.76 K/uL (0.11-0.59); Monocytes % (auto) 15.8 %; Neutrophils # (auto) 6.03 K/uL (1.4-6.5); Neutrophils % (auto) 54.1 %; Platelet Count 363 K/uL (130-400); RDW Coefficient of Variation 11.9 % (11.5-14.5); Red Blood Count 4.86 M/uL (4.7-6.1); White Blood Count 11.15 K/uL (4.8-10.8)
[2021-07-12 08:55] LABS: BUN Creatinine Ratio 14.3 (10-20); Calcium 9.6 mg/dl (8.5-10.1); Chol HDL Ratio 6.9 (0-5); Creatinine Clr Calc Pharmacy 155.4 ml/min; Est GFR (African American) 122.6 ml/min; Est GFR (Non-African American) 105.8 ml/min; Potassium 3.8 mmol/L (3.5-5.1)
[2021-07-12] MEDS ORDERED: SACCHAROMYCES BOULARDII 250 MG CAP PO SCH (09:00)
[2021-07-12] MEDS ORDERED: INSULIN GLARGINE SOLOSTAR 100 UNITS/ML 3 ML PEN SC SCH (09:00)
--- NOTE | 2021-07-12 09:19 | Orthopedic Progress Note ---
Date of Service July 12, 2021 Assessment & Plan (1) Cellulitis of foot, left: Plan: 1. Left foot abscess, first metatarsophalangeal joint. 2. Left foot abscess second metatarsophalangeal joint. 3. Plantar diabetic neuropathic ulcer great toe 0.9 x 0.8 x 0.6 cm. 4. Plantar diabetic neuropathic ulcer, second metatarsal head 1.3 x 1.0 x 1.4 cm. 5. Severe cellulitis, left foot.6. Septic tenosynovitis extensor hallus longus. 7. Septic tenosynovitis second extensor tendon. Continue daily dressing changes. Remainder of packing to be removed Sat/Sun Possible 2nd I/D of the left foot on Thursday Continue antibx per medicine service. Cx as noted below. Admission and Anticipated Discharge Date Admission Date: July 09, 2021 Subjective POD 1 Pt sitting up in bed eating breakfast. No complaints this AM. Comfortable. Pain controlled. Physical Exam Physical Exam: Dressings removed. 7 total sites where Iodiform packing is noted. His foot looks better overal. Swelling is down in the great toe and 2nd toe but continues with erythema. Packing advanced at all sites. Plantar packing sites, all packing removed. Wound between 1st and 2nd toes remains open with packing in to drain. Pt moving his toes well. Continues with dense neuropathy wh ich he has had. Aquacel AG placed in open wound between toes. Some small mount of gruber necrotic tissue removed. Pt has an area approx 1cm in width on the dorsal foot near the webspace of 1st and 2nd toes that is gruber in color. No odor noted. Aquacel AG placed in plantar ulcer. Wounds redressed with adaptic, 4x4's, ABD's, kerlix, and maxi wrap. Results & Data ([facility]) Vital Signs (Past 12 Hours) Vital Signs Temp Pulse Pulse Resp BP BP Pulse Ox 07/12/21 08:00 37.1 C 107 H 18 131/80 99 07/12/21 07:13 96 H 07/12/21 03:20 37.2 C 91 H 18 122/73 96 07/11/21 23:58 94 H 07/11/21 23:00 36.7 C 95 H 18 120/79 96 Diagnostic Findings Name: CHELLE RAMÍREZ Acct: [id number] Status: AD[place] 1970 [facility] [place]: 07/09/21 Age: 51 Sex: M Dis Date: Loc: [address] Rm/Bed: N2[facility] Spec: [id number] Collected: 07/11/21-UNK Received: 07/11/21-[address]: Joseph NewmanD.O. Copy To: Chris Shaffer MD Source: Foot,Left OV Order: Ordered: Aer/Ratna Cult/Sm Comments: Comment 1st web space left foot Procedure Result Verified Site Gram Stain Final 07/11/21-1047 Gram Stain Result Few Polys Moderate Gram Positive Cocci Moderate Gram Positive Bacilli Aero/Ratna Cult PENDING
--- NOTE | 2021-07-12 14:02 | Pharmacy Report ---
Pharmacy Glycemic Short Note 2 - Date of Service July 12, 2021 - Glycemic Short BSG Results (Last 24 hours): 07/11/21 07/11/21 07/12/21 16:48 20:07 07:21 Glucose POC Glucose 232 H 214 H 165 H 07/12/21 07/12/21 08:11 11:44 Glucose 172 H POC Glucose 192 H OUTPATIENT ANTIDIABETIC REGIMEN: * None * HbA1c = 10.3% ASSESSMENT: 07/12/21: * De received 39 units of insulin yesterday: 35 units of Lantus + 4 units of Novolog (was NPO for the majority of this day) * Fasting BSG remains above goal. Continue to increase basal insulin. * Will also increase bolus insulin based on lunch BSG of 192 mg/dL 07/10/21: * 51 y/o M admitted for L foot cellulitis/ Osteomyelitis. Patient was found to have elevated blood sugars above 350 mg/dl and A1c above 10%. He does not seem to have been on any anti-diabetic meds prior to admission. * Mr. Bolden was started on Lantus 30 units at 02:05 on 07/09 and continued the same at HS yesterday. * BSGs trended down to 222 mg/dl at lunch yesterday. Pharmacy was consulted for glycemic management at that time. * Novolog CF and CR was tightened yesterday at dinner based on wt and stress of 2. BSGs further trended down to 117 mg/dl at midnight. * He is NPO this AM in anticipation of I&D of L foot. * Fasting BSG = 133 mg/dl. Continued same Novolog parameters today. PLAN FOR INPATIENT GLYCEMIC CONTROL: * Basal insulin * 07/12: Lantus 10 units qAM + 30 units SQ HS * 07/13: start Lantus 40 units SQ qHS * Bolus insulin * NovoLog per scale ACHS or Q6hrs while NPO * Goal Range: Low 110 mg/dL - High 140 mg/dL * Correction Factor: 18 mg/dL/unit * Nutritional / Prandial insulin per carb ratio of 1 unit per 6 grams CHO consumed PLAN FOR DISCHARGE: * New diagnosis with A1c 10.3% * Recommend initiating once daily basal insulin - could start 35 units SQ HS * Additional recommendations per CDE: 1.) Lifestyle changes- healthy food choices, balanced meals, limit carbs 30- 60g with meals. 2.) SMBG 2x/day- fasting and another time (change this other time from day to day). 3.) Add once daily Lantus HS. 4.) Add Metformin XR 500mg 1 or 2x/day. Typically the XR formulation of Metformin is better tolerated than the immediate release formulation. 5.) Notify provider of BG values > 200 or < 70.
[2021-07-12] MEDS: cefTRIAXone SODIUM 2,000 MG in DEXTROSE 5% 50 ML IV SCH (15:46)
--- NOTE | 2021-07-12 17:44 | Hospitalist Progress Note ---
Date of Service July 12, 2021 Assessment & Plan (1) Sepsis: Plan: present on admission with tachycardia and leukocytosis treated and resolved Plan: Left DM foot infection Abscess, cellulitis Tenosynovitis -Surgical management per Orthopedic surgery -ESR-68, CRP - 12.9 -improved leukocytosis, trend CBC, BMP -deep tissue culture sent yesterday--> +group B strep and yeast (not pete) -MRI left foot negative for osteomyelitis (unlike findings on CT), findings of cellulitis -OR 07/11 for extensive debridement. Possibly 2nd debridement on Thursday -Appreciate ID input, d/c daptomycin and zosyn. Start ceftriaxone 2gm IV daily, fluconazole 400mg daily. Plan for 6 week course Newly diagnosed poorly controlled DM -HA1c 10.3% -He is currently on insulin, with new diagnosis. DM educator and glycemic pharmacist consulted Poorly controlled HTN -at home, was previously on lisinopril 40mg daily and HCTZ 25mg daily -On lisinopril 40mg. HCTZ 25mg resumed 07/09. -adequate BP control today DVT ppx -will start SQ lovenox. H/H has remained stable Disposition-- Patient will need 6 weeks IV antibiotics Admission and Anticipated Discharge Date Admission Date: July 09, 2021 Subjective Feels well BP is better controlled Remains afebrile Patient inquiring about getting his antibiotics at infusion center vs home infusion. Physical Exam Physical Exam: No acute distress, pleasant and non toxic Respiratory: breathing comfortably on room air, no wheezing/rhonchi/rales Cardiovascular: regular rate and rhythm, no murmurs/rubs/gallops Gastrointestinal (Abdomen): soft, non tender, non distended Musculoskeletal: no edema Skin: as noted in wound photos Neurologic: awake, alert, spontaneously moving extremities Results & Data Results & Data ([facility]) Vital Signs (Past 12 Hours) Vital Signs Temp Pulse Pulse Pulse Resp BP Pulse Ox 07/12/21 14:58 98 H 07/12/21 14:22 37.2 C 84 18 157/93 H 96 07/12/21 11:00 36.4 C L 104 H 18 119/78 99 07/12/21 08:00 37.1 C 107 H 18 131/80 99 07/12/21 07:13 96 H Laboratory Results Short CBC 07/12/21 Range/Units 08:11 WBC 11.15 H (4.8-10.8) K/uL Hgb 15.5 (14.0-18.0) g/dL Hct 45.4 (42-52) % Plt Count 363 (130-400) K/uL [facility] 07/12/21 08:11 Sodium 134 L Potassium 3.8 Chloride 97 L Carbon Dioxide 29 BUN 11 Creatinine 0.77 Glucose 172 H Calcium 9.6 Medications Administered Current Inpatient Medications Acetaminophen (Acetaminophen 325 Mg Tab) 650 mg PO Q4H PRN PRN Reason: Pain or Fever Stop: 08/08/21 03:49 Last Admin: 07/11/21 18:20 Dose: 650 mg Documented by: Aspirin (Aspirin 81 Mg Ectab) 81 mg PO BID [facility] Stop: 08/10/21 20:59 Last Admin: 07/12/21 07:43 Dose: 81 mg Documented by: Bisacodyl (Bisacodyl 10 Mg Supp) 10 mg [place] DAILY PRN PRN Reason: Constipation Stop: 08/10/21 09:52 Dextrose (Dextrose 50% 50 Ml Syringe) 25 - 50 ml IV UD PRN; Protocol PRN Reason: Hypoglycemia Protocol Stop: 08/08/21 03:49 Docusate Sodium (Docusate Sodium 100 Mg Cap) 100 mg PO BID [facility] Stop: 08/10/21 09:59 Last Admin: 07/12/21 07:44 Dose: 100 mg Documented by: Famotidine (Famotidine 10 Mg Tablet) 10 mg PO HS PRN PRN Reason: HEARTBURN/INDIGESTION Stop: 08/08/21 03:49 Last Admin: 07/12/21 07:44 Dose: 10 mg Documented by: Fluconazole (Fluconazole 100 Mg Tab) 400 mg PO DAILY [facility]; Protocol Stop: 08/22/21 15:59 Last Admin: 07/12/21 07:43 Dose: 400 mg Documented by: Glucagon (Glucagon For Inj 1 Mg Vial) 1 mg SQ UD PRN; Protocol PRN Reason: Hypoglycemia Protocol Stop: 08/08/21 03:49 Glucose (Glucose 10 Tabs/Tube) 4 - 8 tabs PO UD PRN; Protocol PRN Reason: Hypoglycemia Protocol Stop: 08/08/21 03:49 Glucose (Glucose 40% Gel 15 Gm Tube) 15 - 30 gm PO UD PRN; Protocol PRN Reason: Hypoglycemia Protocol Stop: 08/08/21 03:49 Hydrochlorothiazide (Hydrochlorothiazide 25 Mg Tab) 25 mg PO QAM [facility] Stop: 08/09/21 08:59 Last Admin: 07/12/21 07:43 Dose: 25 mg Documented by: Hydromorphone HCl (Hydromorphone Inj 0.5 Mg/0.5 Ml Syr) 0.5 mg IV Q4H PRN PRN Reason: Pain Stop: 07/25/21 09:01 Promethazine HCl 12.5 mg/ (Sodium Chloride) 50.5 mls @ 202 mls/hr IV Q6H PRN PRN Reason: Nausea And Vomiting Stop: 08/08/21 03:49 Ceftriaxone Sodium 2,000 mg/ (Dextrose) 70 mls @ 100 mls/hr IV Q24H [facility]; Protocol Stop: 08/22/21 15:59 Last Admin: 07/12/21 15:46 Dose: 100 mls/hr Documented by: Insulin Aspart (Insulin Aspart Per Unit) 0 units SC ACHS [facility] Stop: 08/10/21 20:59 Last Admin: 07/12/21 11:54 Dose: 9 units Documented by: Insulin Glargine (Insulin Glargine Solostar 100 Units/Ml 3 Ml Pen) 30 units SC HS [facility] Stop: 07/12/21 23:59 Last Admin: 07/11/21 20:35 Dose: 30 units Documented by: Insulin Glargine (Insulin Glargine Solostar 100 Units/Ml 3 Ml Pen) 40 units SC HS [facility] Stop: 08/12/21 20:59 Lisinopril (Lisinopril 40 Mg Tab) 40 mg PO DAILY [facility] Stop: 08/08/21 08:59 Last Admin: 07/12/21 07:43 Dose: 40 mg Documented by: Magnesium Hydroxide (Magnesium Hydroxide Susp 30 Ml Udc) 30 ml PO Q6H PRN PRN Reason: Constipation Stop: 08/10/21 09:52 Miscellaneous (Carbohydrates For Hypoglycemia ) 15 - 30 gm PO UD PRN PRN Reason: Hypoglycemia Protocol Stop: 08/08/21 03:49 Miscellaneous Information (Pharmacy Glycemic Mgmt Consult) 1 ea N/A UD PRN PRN Reason: Consult Stop: 08/08/21 13:42 Morphine Sulfate (Morphine Sulfate 4 Mg/Ml 1 Ml Carp\Vial) 4 mg IV Q4H PRN PRN Reason: Pain Stop: 07/23/21 03:49 Multivitamins (Multivitamin Tab) 1 tab PO QAM [facility] Stop: 08/10/21 09:59 Last Admin: 07/12/21 07:43 Dose: 1 tab Documented by: Naloxone HCl (Naloxone Hcl 0.4 Mg/1 Ml Vial/Carp) 0.1 mg IV Q5M PRN PRN Reason: Oversedation/Resp Depression Stop: 08/10/21 09:52 Ondansetron HCl (Ondansetron Inj 2 Mg/Ml 2 Ml Vial) 4 mg IV Q6H PRN PRN Reason: Nausea And Vomiting Stop: 08/10/21 09:52 Oxycodone HCl (Oxycodone Hcl Ir 5 Mg Tab (Immediate Release)) 5 mg PO Q4H PRN PRN Reason: Pain Stop: 07/23/21 03:49 Saccharomyces Boulardii (Saccharomyces Boulardii 250 Mg Cap) 250 mg PO DAILY [facility] Stop: 08/08/21 08:59 Last Admin: 07/12/21 07:43 Dose: 250 mg Documented by:
[2021-07-12] MEDS: INSULIN GLARGINE SOLOSTAR 100 UNITS/ML 3 ML PEN SC SCH (20:14)
[2021-07-13 06:49] LABS: Hematocrit (blood only) 42.8 % (42-52); Hemoglobin 14.7 g/dL (14.0-18.0); Mean Corpuscular Hgb Conc 34.3 g/dL (32-36); Mean Corpuscular Volume 93.2 fL (80-100); Mean Platelet Volume 9.5 fL (7.4-10.4); Platelet Count 337 K/uL (130-400); RDW Coefficient of Variation 11.8 % (11.5-14.5); RDW Standard Deviation 39.9 fL (36.4-46.3); Red Blood Count 4.59 M/uL (4.7-6.1)
[2021-07-13 07:12] LABS: BUN Creatinine Ratio 14.8 (10-20); Calcium 9.2 mg/dl (8.5-10.1); Creatinine Clr Calc Pharmacy 147.7 ml/min; Est GFR (African American) 120.1 ml/min; Est GFR (Non-African American) 103.6 ml/min; Potassium 3.9 mmol/L (3.5-5.1)
[2021-07-13 07:14] LABS: ALC (manual) 3.64 K/uL (1.2-3.4); ANC (manual) 4.88 K/uL (1.4-6.5); Eosinophils # (manual) 0.17 K/uL (0-0.5); Eosinophils % (manual) 1.7 %; Lymphocytes # (manual) 3.64 K/uL (1.2-3.4); Lymphocytes % (manual) 35.7 %; Monocytes # (manual) 1.42 K/uL (0.11-0.59); Monocytes % (manual) 13.9 %; Myelocytes # (manual) 0.09 K/uL (0-0); Myelocytes % (manual) 0.9 %; Neutrophils # (manual) 4.88 K/uL (1.4-6.5); Neutrophils % (manual) 47.8 %; RBC Morphology Unremarkable
[2021-07-13] MEDS: INSULIN ASPART PER UNIT SC SCH ×4 (08:23→20:47)
[2021-07-13] MEDS: SACCHAROMYCES BOULARDII 250 MG CAP PO SCH (08:25)
[2021-07-13] MEDS: FAMOTIDINE 10 MG TABLET PO PRN (08:25)
[2021-07-13] MEDS: ASPIRIN 81 MG ECTAB PO SCH ×2 (08:25→20:52)
[2021-07-13] MEDS: FLUCONAZOLE 100 MG TAB PO SCH (08:26)
[2021-07-13] MEDS: DOCUSATE SODIUM 100 MG CAP PO SCH ×2 (08:27→20:51)
[2021-07-13] MEDS: lisinopril 40 MG TAB PO SCH (08:27)
[2021-07-13] MEDS: hydroCHLOROthiazide 25 MG TAB PO SCH (08:27)
[2021-07-13] MEDS: MULTIVITAMIN TAB PO SCH (08:28)
[2021-07-13] MEDS ORDERED: ENOXAPARIN INJ 40 MG/0.4 ML SYR SQ SCH (09:00)
[2021-07-13] MEDS ORDERED: INSULIN GLARGINE SOLOSTAR 100 UNITS/ML 3 ML PEN SC ONE ×2 (09:00)
--- NOTE | 2021-07-13 09:29 | Orthopedic Progress Note ---
Date of Service July 13, 2021 Assessment & Plan (1) Cellulitis of foot, left: Plan: 1. Left foot abscess, first metatarsophalangeal joint. 2. Left foot abscess second metatarsophalangeal joint. 3. Plantar diabetic neuropathic ulcer great toe 0.9 x 0.8 x 0.6 cm. 4. Plantar diabetic neuropathic ulcer, second metatarsal head 1.3 x 1.0 x 1.4 cm. 5. Severe cellulitis, left foot.6. Septic tenosynovitis extensor hallus longus. 7. Septic tenosynovitis second extensor tendon. Continue daily dressing changes. Dressing change today. Some of the packing removed. Will need 2nd I/D of the left foot on Thursday. Will make patient n.p.o. after midnight for repeat surgery tomorrow. Continue antibx per medicine service. Cx as noted below. Admission and Anticipated Discharge Date Admission Date: July 09, 2021 Subjective Postop day 2 left foot I&D. Patient is doing well this morning. He has no current complaints. Denies any chest pain, shortness of breath, fevers or chills. No pain into his foot. Review of Systems Review of Systems: All systems reviewed & are unremarkable except as noted in Subjective Physical Exam Physical Exam: Dressings removed. Iodiform packing is noted and advanced which was removed. Swelling is down in the great toe and 2nd toe but continues with erythema. Wound between 1st and 2nd toes remains open with packing in to drain. Pt moving his toes well. Continues with dense neuropathy which he has had. Aquacel AG placed in open wound between toes. Dorsally has some increased purulent drainage second and great toe with some mild erythema. Adaptic, Kerlix, 4 x 4's and Prashanth applied. Constitutional: WD/WN, vitals as above Results & Data ([facility]) Vital Signs (Past 12 Hours) Vital Signs Temp Pulse Pulse Pulse Resp BP BP 07/13/21 07:40 36.9 C 86 18 157/99 H 07/13/21 03:47 89 07/13/21 03:35 36.8 C 86 20 132/83 07/12/21 23:11 37.0 C 92 H 18 127/86 Pulse Ox 07/13/21 07:40 100 07/13/21 03:47 07/13/21 03:35 91 07/12/21 23:11 97
--- NOTE | 2021-07-13 13:10 | Hospitalist Progress Note ---
Date of Service July 13, 2021 Assessment & Plan (1) Sepsis: Plan: present on admission with tachycardia and leukocytosis treated and resolved Plan: Left DM foot infection Abscess, cellulitis Tenosynovitis -Surgical management per Orthopedic surgery -ESR-68, CRP - 12.9 -deep tissue culture sent yesterday--> +group B strep and yeast (not pete) -MRI left foot negative for osteomyelitis (unlike findings on CT), findings of cellulitis, tenosynovitis, abscess -OR 07/11 for extensive debridement. 2nd debridement on Thursday -Appreciate ID input, d/c daptomycin and zosyn. Start ceftriaxone 2gm IV daily, fluconazole 400mg daily. Plan for 6 week course. Follow up in ID clinic in 2-4 weeks Newly diagnosed poorly controlled DM -HA1c 10.3% -He is currently on insulin, with new diagnosis. DM educator and glycemic pharmacist consulted -Patient will need basal insulin and metformin at discharge (final dosing TBD) Poorly controlled HTN -continuelisinopril 40mg daily and HCTZ 25mg daily DVT ppx -hold SQ lovenox in anticipation of debridement tomorrow Disposition-- Patient will need 6 weeks IV antibiotics. Anticipate patient will be medically stable for discharge on Thursday. Patient would like to go to infusion center (if that's not an option, he is agreeable for home infusion). Admission and Anticipated Discharge Date Admission Date: July 09, 2021 Subjective Feels well No events overnight Physical Exam Physical Exam: Appears well. Pleasant and comfortable Respiratory: breathing comfortably on room air, no wheezing/rhonchi/rales Cardiovascular: regular rate and rhythm, no murmurs/rubs/gallops Gastrointestinal (Abdomen): soft, non tender Musculoskeletal: no edema. Left foot is dressed--dressing is clean/dry/intact Neurologic: awake, alert, spontaneously moving extremities Results & Data Results & Data ([facility]) Vital Signs (Past 12 Hours) Vital Signs Temp Pulse Pulse Pulse Resp BP BP 07/13/21 11:43 36.4 C L 86 18 144/90 H 07/13/21 07:40 36.9 C 86 18 157/99 H 07/13/21 03:47 89 07/13/21 03:35 36.8 C 86 20 132/83 Pulse Ox 07/13/21 11:43 98 07/13/21 07:40 100 07/13/21 03:47 07/13/21 03:35 91 Laboratory Results Short CBC 07/13/21 Range/Units 06:41 WBC 10.20 (4.8-10.8) K/uL Hgb 14.7 (14.0-18.0) g/dL Hct 42.8 (42-52) % Plt Count 337 (130-400) K/uL BMP 07/13/21 06:41 Sodium 134 L Potassium 3.9 Chloride 98 Carbon Dioxide 28 BUN 12 Creatinine 0.81 Glucose 181 H Calcium 9.2 Medications Administered Current Inpatient Medications Acetaminophen (Acetaminophen 325 Mg Tab) 650 mg PO Q4H PRN PRN Reason: Pain or Fever Stop: 08/08/21 03:49 Last Admin: 07/11/21 18:20 Dose: 650 mg Documented by: Aspirin (Aspirin 81 Mg Ectab) 81 mg PO BID [facility] Stop: 08/10/21 20:59 Last Admin: 07/13/21 08:25 Dose: 81 mg Documented by: Bisacodyl (Bisacodyl 10 Mg Supp) 10 mg RI DAILY PRN PRN Reason: Constipation Stop: 08/10/21 09:52 Dextrose (Dextrose 50% 50 Ml Syringe) 25 - 50 ml IV UD PRN; Protocol PRN Reason: Hypoglycemia Protocol Stop: 08/08/21 03:49 Docusate Sodium (Docusate Sodium 100 Mg Cap) 100 mg PO BID [facility] Stop: 08/10/21 09:59 Last Admin: 07/13/21 08:27 Dose: Not Given Documented by: Famotidine (Famotidine 10 Mg Tablet) 10 mg PO HS PRN PRN Reason: HEARTBURN/INDIGESTION Stop: 08/08/21 03:49 Last Admin: 07/13/21 08:25 Dose: 10 mg Documented by: Fluconazole (Fluconazole 100 Mg Tab) 400 mg PO DAILY KATHERINE; Protocol Stop: 08/22/21 15:59 Last Admin: 07/13/21 08:26 Dose: 400 mg Documented by: Glucagon (Glucagon For Inj 1 Mg Vial) 1 mg SQ UD PRN; Protocol PRN Reason: Hypoglycemia Protocol Stop: 08/08/21 03:49 Glucose (Glucose 10 Tabs/Tube) 4 - 8 tabs PO UD PRN; Protocol PRN Reason: Hypoglycemia Protocol Stop: 08/08/21 03:49 Glucose (Glucose 40% Gel 15 Gm Tube) 15 - 30 gm PO UD PRN; Protocol PRN Reason: Hypoglycemia Protocol Stop: 08/08/21 03:49 Hydrochlorothiazide (Hydrochlorothiazide 25 Mg Tab) 25 mg PO QAM [facility] Stop: 08/09/21 08:59 Last Admin: 07/13/21 08:27 Dose: 25 mg Documented by: Hydromorphone HCl (Hydromorphone Inj 0.5 Mg/0.5 Ml Syr) 0.5 mg IV Q4H PRN PRN Reason: Pain Stop: 07/25/21 09:01 Promethazine HCl 12.5 mg/ (Sodium Chloride) 50.5 mls @ 202 mls/hr IV Q6H PRN PRN Reason: Nausea And Vomiting Stop: 08/08/21 03:49 Ceftriaxone Sodium 2,000 mg/ (Dextrose) 70 mls @ 100 mls/hr IV Q24H [facility]; Protocol Stop: 08/22/21 15:59 Last Infusion: 07/12/21 16:30 Dose: Infused Documented by: Insulin Aspart (Insulin Aspart Per Unit) 0 units SC ACHS [facility] Stop: 08/10/21 20:59 Last Admin: 07/13/21 12:15 Dose: 14 units Documented by: Insulin Glargine (Insulin Glargine Solostar 100 Units/Ml 3 Ml Pen) 40 units SC HS [facility] Stop: 08/12/21 20:59 Lisinopril (Lisinopril 40 Mg Tab) 40 mg PO DAILY [facility] Stop: 08/08/21 08:59 Last Admin: 07/13/21 08:27 Dose: 40 mg Documented by: Magnesium Hydroxide (Magnesium Hydroxide Susp 30 Ml Udc) 30 ml PO Q6H PRN PRN Reason: Constipation Stop: 08/10/21 09:52 Miscellaneous (Carbohydrates For Hypoglycemia ) 15 - 30 gm PO UD PRN PRN Reason: Hypoglycemia Protocol Stop: 08/08/21 03:49 Miscellaneous Information (Pharmacy Glycemic Mgmt Consult) 1 ea N/A UD PRN PRN Reason: Consult Stop: 08/08/21 13:42 Morphine Sulfate (Morphine Sulfate 4 Mg/Ml 1 Ml Carp\Vial) 4 mg IV Q4H PRN PRN Reason: Pain Stop: 07/23/21 03:49 Multivitamins (Multivitamin Tab) 1 tab PO QAM [facility] Stop: 08/10/21 09:59 Last Admin: 07/13/21 08:28 Dose: 1 tab Documented by: Naloxone HCl (Naloxone Hcl 0.4 Mg/1 Ml Vial/Carp) 0.1 mg IV Q5M PRN PRN Reason: Oversedation/Resp Depression Stop: 08/10/21 09:52 Ondansetron HCl (Ondansetron Inj 2 Mg/Ml 2 Ml Vial) 4 mg IV Q6H PRN PRN Reason: Nausea And Vomiting Stop: 08/10/21 09:52 Oxycodone HCl (Oxycodone Hcl Ir 5 Mg Tab (Immediate Release)) 5 mg PO Q4H PRN PRN Reason: Pain Stop: 07/23/21 03:49 Saccharomyces Boulardii (Saccharomyces Boulardii 250 Mg Cap) 250 mg PO DAILY [facility] Stop: 08/08/21 08:59 Last Admin: 07/13/21 08:25 Dose: 250 mg Documented by:
[2021-07-13] MEDS: cefTRIAXone SODIUM 2,000 MG in DEXTROSE 5% 50 ML IV SCH (15:35)
[2021-07-13] MEDS ORDERED: INSULIN GLARGINE SOLOSTAR 100 UNITS/ML 3 ML PEN SC SCH (21:00)
[2021-07-14 06:00] LABS: Basophils # (auto) 0.04 K/uL (0-0.2); Basophils % (auto) 0.4 %; Eosinophils # (auto) 0.12 K/uL (0-0.5); Eosinophils % (auto) 1.2 %; Hematocrit (blood only) 44.5 % (42-52); Hemoglobin 15.1 g/dL (14.0-18.0); Immature Granulocytes # (auto) 0.47 K/uL (0.00-0.02); Immature Granulocytes % (auto) 4.9 %; Lymphocytes # (auto) 3.34 K/uL (1.2-3.4); Lymphocytes % (auto) 34.6 %; Mean Corpuscular Hemoglobin 31.9 pg (25-34); Mean Corpuscular Hgb Conc 33.9 g/dL (32-36); Mean Corpuscular Volume 94.1 fL (80-100); Mean Platelet Volume 9.7 fL (7.4-10.4); Monocytes # (auto) 1.08 K/uL (0.11-0.59); Monocytes % (auto) 11.2 %; Neutrophils % (auto) 47.7 %; Platelet Count 377 K/uL (130-400); RDW Coefficient of Variation 11.9 % (11.5-14.5); RDW Standard Deviation 41.3 fL (36.4-46.3); Red Blood Count 4.73 M/uL (4.7-6.1); White Blood Count 9.65 K/uL (4.8-10.8)
[2021-07-14] MEDS ORDERED: Nursing to Pharmacy Communication SCH ×2 (06:00→19:45)
[2021-07-14 06:10] LABS: INR 1.1 (0.9-1.1); Prothrombin Time 10.7 Seconds (9.0-12.0)
[2021-07-14] MEDS: INSULIN ASPART PER UNIT SC SCH ×4 (06:15→22:14)
[2021-07-14 06:21] LABS: BUN Creatinine Ratio 15.7 (10-20); Calcium 9.2 mg/dl (8.5-10.1); Creatinine Clr Calc Pharmacy 144.1 ml/min; Est GFR (African American) 118.9 ml/min; Est GFR (Non-African American) 102.6 ml/min; Potassium 3.8 mmol/L (3.5-5.1)
--- NOTE | 2021-07-14 10:14 | Pharmacy Report ---
Pharmacy Glycemic Short Note 2 - Date of Service July 14, 2021 - Glycemic Short BSG Results (Last 24 hours): 07/13/21 07/13/21 07/13/21 11:30 17:10 20:38 Glucose POC Glucose 241 H 137 H 158 H 07/14/21 07/14/21 05:21 05:42 Glucose 172 H POC Glucose 167 H OUTPATIENT ANTIDIABETIC REGIMEN: * None * HbA1c = 10.3% ASSESSMENT: 07/14/21: * BSGs yesterday of 192, 241, 137, and 158 mg/dL, fasting BSG of 167 mg/dL this morning * Patient is currently NPO for planned left foot I&D today * Will hold off on basal until HS, reduce dose today in light of prolonged NPO * Continue tightened Novolog, consider further tightening AM Novolog tomorrow morning given elevated lunchtime BSGs 07/12/21: * De received 39 units of insulin yesterday: 35 units of Lantus + 4 units of Novolog (was NPO for the majority of this day) * Fasting BSG remains above goal. Continue to increase basal insulin. * Will also increase bolus insulin based on lunch BSG of 192 mg/dL 07/10/21: * 51 y/o M admitted for L foot cellulitis/ Osteomyelitis. Patient was found to have elevated blood sugars above 350 mg/dl and A1c above 10%. He does not seem to have been on any anti-diabetic meds prior to admission. * Mr. Bolden was started on Lantus 30 units at 02:05 on 07/09 and continued the same at HS yesterday. * BSGs trended down to 222 mg/dl at lunch yesterday. Pharmacy was consulted for glycemic management at that time. * Novolog CF and CR was tightened yesterday at dinner based on wt and stress of 2. BSGs further trended down to 117 mg/dl at midnight. * He is NPO this AM in anticipation of I&D of L foot. * Fasting BSG = 133 mg/dl. Continued same Novolog parameters today. PLAN FOR INPATIENT GLYCEMIC CONTROL: * Basal insulin - reduce * Lantus 30-40 units SC HS (see EHR for details) * Bolus insulin - continue * NovoLog per scale ACHS or Q6hrs while NPO * Goal Range: Low 110 mg/dL - High 140 mg/dL * Correction Factor: 18 mg/dL/unit * Nutritional / Prandial insulin per carb ratio of 1 unit per 6 grams CHO consumed PLAN FOR DISCHARGE: * New diagnosis with A1c 10.3% * Recommend initiating once daily basal insulin - could start 35 units SQ HS * Additional recommendations per CDE: 1.) Lifestyle changes- healthy food choices, balanced meals, limit carbs 30- 60g with meals. 2.) SMBG 2x/day- fasting and another time (change this other time from day to day). 3.) Add once daily Lantus HS. 4.) Add Metformin XR 500mg 1 or 2x/day. Typically the XR formulation of Metformin is better tolerated than the immediate release formulation. 5.) Notify provider of BG values > 200 or < 70.
--- NOTE | 2021-07-14 10:26 | Anesthesiology Consultation ---
Date of Service July 14, 2021 Assessment & Plan (1) Encounter for pre-operative examination: Chart Review Chart Review: medical charge entry specialist initiated History Surgery Operation Date: 07/10/21 09:50 Proposed Procedures p Left Foot Irrigation and Debridement, Possible Amputation 1st Distal Phalanx - Joseph Newman DO Operation Date: 07/11/21 07:15 Proposed Procedures p Right Foot Incision and Drainage Possible Amputation - Joseph Newman DO Operation Date: 07/14/21 07:15 Proposed Procedures p Incision and Drainage Extremity:Repeat Left foot(Left) - Joseph Newman DO Height/Weight Height: 6 ft 3 in Weight: 112.5 kg Allergies Allergy/AdvReac Type Severity Reaction Status Date / Time No Known Allergies Allergy Verified 07/08/21 23:39 Medications Home Medications Medication Instructions Recorded Confirmed Last Taken cephalexin 500 mg capsule 500 mg PO TID 07/08/21 07/08/21 07/08/21 famotidine 10 mg tablet 10 mg PO HS PRN 07/08/21 07/08/21 Unknown hydrochlorothiazide 25 mg tablet 25 mg PO DAILY 07/08/21 07/08/21 07/08/21 ibuprofen 200 mg tablet (Advil) 400 mg PO DIRECTED PRN 07/08/21 07/08/21 Unknown lisinopril 40 mg tablet 40 mg PO DAILY 07/08/21 07/08/21 07/08/21 Active Medications Generic Name Dose Route Start Last Admin Trade Name Freq PRN Reason Stop Dose Admin Acetaminophen 650 mg 07/09/21 03:50 07/11/21 18:20 Acetaminophen 325 Mg Tab PO 08/08/21 03:49 650 mg Q4H PRN Administration Pain or Fever Aspirin 81 mg 07/11/21 21:00 07/13/21 20:52 Aspirin 81 Mg Ectab PO 08/10/21 20:59 81 mg BID KATHERINE Administration Docusate Sodium 100 mg 07/11/21 10:00 07/13/21 20:51 Docusate Sodium 100 Mg Cap PO 08/10/21 09:59 Not Given BID KATHERINE Famotidine 10 mg 07/09/21 03:50 07/13/21 08:25 Famotidine 10 Mg Tablet PO 08/08/21 03:49 10 mg HS PRN Administration HEARTBURN/INDIGESTION Fluconazole 400 mg 07/11/21 16:00 07/13/21 08:26 Fluconazole 100 Mg Tab PO 08/22/21 15:59 400 mg DAILY KATHERINE Administration Protocol Hydrochlorothiazide 25 mg 07/10/21 09:00 07/13/21 08:27 Hydrochlorothiazide 25 Mg Tab PO 08/09/21 08:59 25 mg QAM KATHERINE Administration Ceftriaxone Sodium 2,000 mg/ 70 mls @ 100 mls/hr 07/12/21 16:00 07/13/21 16: 20 Dextrose IV 08/22/21 15:59 Infused Q24H KATHERINE Infusion Protocol Insulin Aspart 0 units 07/14/21 06:00 07/14/21 06:15 Insulin Aspart Per Unit SC 08/13/21 05:59 2 units Q6 KATHERINE Administration Insulin Glargine 40 units 07/13/21 21:00 07/13/21 20:49 Insulin Glargine Solostar 100 Units/Ml 3 Ml Pen SC 08/12/21 20:59 40 units HS KATHERINE Administration Lisinopril 40 mg 07/09/21 09:00 07/13/21 08:27 Lisinopril 40 Mg Tab PO 08/08/21 08:59 40 mg DAILY KATHERINE Administration Multivitamins 1 tab 07/11/21 10:00 07/13/21 08:28 Multivitamin Tab PO 08/10/21 09:59 1 tab QAM KATHERINE Administration Saccharomyces Boulardii 250 mg 07/09/21 09:00 07/13/21 08:25 Saccharomyces Boulardii 250 Mg Cap PO 08/08/21 08:59 250 mg DAILY KATHERINE Administration NPO Date Last Intake of Fluids: 07/13/21 Time Last Intake of Fluids: 23:59 Last Intake of Fluids Comment: WATER INTAKE Date Last Intake of Solids: 07/13/21 Time Last Intake of Solids: 16:30 Last Intake of Solids Comment: dinner Past Medical History Medical History Hypertension Scoliosis Social History Smoking Status: Never smoker Hx Substance Use: No Physical Exam Vital Signs Last Vital Signs Temp 98.8 F 07/14/21 08:25 Pulse 85 07/14/21 08:25 Resp 16 07/14/21 08:25 BP 132/86 07/14/21 08:25 Pulse Ox 96 07/14/21 08:25 Testing Laboratory Results 07/14/21 05:21 07/14/21 05:21 PT 10.7 Seconds (9.0-12.0) 07/14/21 05:21 INR 1.1 (0.9-1.1) 07/14/21 05:21 APTT 27.5 Seconds (21.0-31.0) 07/08/21 21:03 Hemoglobin A1c 10.3 % (4.5-5.6) H 07/08/21 21:09 07/11/21 Unknown Gram Stain - Final Foot,Left Aerobic and Anaerobic Culture - Preliminary Group B Beta Strep 07/08/21 21:03 Aerobic Blood Culture - Final Blood No growth in Aerobic bottle after 5 days. Anaerobic Blood Culture - Final No growth in Anaerobic bottle after 5 days. 07/08/21 23:41 Aerobic Blood Culture - Final Blood No growth in Aerobic bottle after 5 days. Anaerobic Blood Culture - Final No growth in Anaerobic bottle after 5 days. 07/11/21 19:45 Aerobic Blood Culture - Preliminary Blood No growth in Aerobic bottle after 48 hours. Anaerobic Blood Culture - Preliminary No growth in Anaerobic bottle after 48 hours. 07/11/21 19:40 Aerobic Blood Culture - Preliminary Blood No growth in Aerobic bottle after 48 hours. Anaerobic Blood Culture - Preliminary No growth in Anaerobic bottle after 48 hours. 07/09/21 02:46 Gram Stain - Final Foot,Left Deep Wound Culture - Final Group B Beta Strep Yeast not Bebe albicans/dub 07/14/21 05:42 POC Glucose 167 H Electrocardiogram Date: 07/08/21 Sinus tachycardia, rate 118 bpm Otherwise normal ECG No previous ECGs available Confirmed by Darnell Wray ([id number]) on 07/09/2021 12:01:51 PM Chest X-Ray Date: 07/09/21
--- NOTE | 2021-07-14 11:06 | Pharmacy Report ---
Pharmacy Glycemic Short Note 2 - Date of Service July 14, 2021 - Glycemic Short BSG Results (Last 24 hours): 07/13/21 07/13/21 07/13/21 11:30 17:10 20:38 Glucose POC Glucose 241 H 137 H 158 H 07/14/21 07/14/21 05:21 05:42 Glucose 172 H POC Glucose 167 H OUTPATIENT ANTIDIABETIC REGIMEN: * None * HbA1c = 10.3% ASSESSMENT: 07/12/21: * De received 39 units of insulin yesterday: 35 units of Lantus + 4 units of Novolog (was NPO for the majority of this day) * Fasting BSG remains above goal. Continue to increase basal insulin. * Will also increase bolus insulin based on lunch BSG of 192 mg/dL 07/10/21: * 51 y/o M admitted for L foot cellulitis/ Osteomyelitis. Patient was found to have elevated blood sugars above 350 mg/dl and A1c above 10%. He does not seem to have been on any anti-diabetic meds prior to admission. * Mr. Bolden was started on Lantus 30 units at 02:05 on 07/09 and continued the same at HS yesterday. * BSGs trended down to 222 mg/dl at lunch yesterday. Pharmacy was consulted for glycemic management at that time. * Novolog CF and CR was tightened yesterday at dinner based on wt and stress of 2. BSGs further trended down to 117 mg/dl at midnight. * He is NPO this AM in anticipation of I&D of L foot. * Fasting BSG = 133 mg/dl. Continued same Novolog parameters today. PLAN FOR INPATIENT GLYCEMIC CONTROL: * Basal insulin * 07/12: Lantus 10 units qAM + 30 units SQ HS * 07/13: start Lantus 40 units SQ qHS * Bolus insulin * NovoLog per scale ACHS or Q6hrs while NPO * Goal Range: Low 110 mg/dL - High 140 mg/dL * Correction Factor: 18 mg/dL/unit * Nutritional / Prandial insulin per carb ratio of 1 unit per 6 grams CHO consumed PLAN FOR DISCHARGE: * New diagnosis with A1c 10.3% * Recommend initiating once daily basal insulin - could start 35 units SQ HS * Additional recommendations per CDE: 1.) Lifestyle changes- healthy food choices, balanced meals, limit carbs 30- 60g with meals. 2.) SMBG 2x/day- fasting and another time (change this other time from day to day). 3.) Add once daily Lantus HS. 4.) Add Metformin XR 500mg 1 or 2x/day. Typically the XR formulation of Metformin is better tolerated than the immediate release formulation. 5.) Notify provider of BG values > 200 or < 70.
[2021-07-14] MEDS ORDERED: ATROPINE SULFATE 0.1 MG/ML 10ML SYR IV PRN (14:12)
[2021-07-14] MEDS ORDERED: ONDANSETRON INJ 2 MG/ML 2 ML VIAL IV PRN (14:12)
[2021-07-14] MEDS ORDERED: ePHEDrine sulfate 50 MG/ML AMP IV PRN (14:12)
[2021-07-14] MEDS ORDERED: fentaNYL citrate 100 MCG/2 ML VIAL IV PRN (14:12)
--- NOTE | 2021-07-14 14:34 | History & Physical Bridge Note ---
Date of Service July 14, 2021 History & Physical Bridge Note I have examined the patient, reviewed the History & Physical and in the interval since the performance of the History & Physical I have noted the following changes of clinical significance: Repeat irrigation and debridement left foot.
[2021-07-14] MEDS ORDERED: MIDAZOLAM HCL 1 MG/ML 2ML VIAL ONE (14:40)
[2021-07-14] MEDS ORDERED: fentaNYL citrate 100 MCG/2 ML VIAL ONE (14:40)
[2021-07-14] MEDS ORDERED: PROPOFOL IV EMULSION 10 MG/ML 20 ML VIAL IV ONE ×2 (14:40→15:11)
[2021-07-14] MEDS ORDERED: BUPIVACAINE 0.5 % 5 MG/1 ML MPF 30ML VIAL ONE (15:10)
[2021-07-14] MEDS ORDERED: ceFAZolin 330 MG/ML 1 GM VIAL ONE (15:24)
--- NOTE | 2021-07-14 15:44 | Hospitalist Progress Note ---
Date of Service July 14, 2021 Assessment & Plan (1) Sepsis: Plan: present on admission with tachycardia and leukocytosis treated and resolved Plan: Left DM foot infection Abscess, cellulitis Tenosynovitis -Surgical management per Orthopedic surgery -ESR-68, CRP - 12.9 -deep tissue culture 07/09 --> +group B strep and yeast (not pete) -OR culture 07/11--> group B strep, finegoldia magna, anaerobic gram positive bacili -MRI left foot negative for osteomyelitis (unlike findings on CT), findings of cellulitis, tenosynovitis, abscess -OR 07/11 for extensive debridement. 2nd debridement planned for today -Appreciate ID input, currently on: ceftriaxone 2gm IV daily, fluconazole 400mg daily, plan for 6 week course--> since ID consult, OR wound cultures 07/11 back and is different from tissue culture from 07/09--> tomorrow will reach out to ID to discuss whether Abx need to be changed. -weekly CBC, BMP. Follow up in ID clinic in 2-4 weeks Newly diagnosed poorly controlled DM -HA1c 10.3% -He is currently on insulin, with new diagnosis. DM educator and glycemic pharmacist consulted -Patient will need basal insulin and metformin at discharge (final dosing TBD) Poorly controlled HTN -continue lisinopril 40mg daily and HCTZ 25mg daily DVT ppx -SQ lovenox on hold for debridement today Disposition-- Patient will need 6 weeks IV antibiotics. Anticipate patient will be medically stable for discharge on tomorrow pending final Abx recommendations from ID. Discussed with CM on Thursday--> patient prefers infusion center rather than home infusion. Admission and Anticipated Discharge Date Admission Date: July 09, 2021 Subjective Feels well Plan for OR for 2nd debridement today Physical Exam Physical Exam: Appears well, pleasant, and comfortable Respiratory: breathing comfortably on room air, no wheezing/rhonchi/rales Cardiovascular: regular rate and rhythm, no murmurs/rubs/gallops Gastrointestinal (Abdomen): soft, non tender Musculoskeletal: left foot in dressing, no lower extremity edema Neurologic: awake, alert, spontaneoulsy moving extremities Results & Data Results & Data ([facility]) Vital Signs (Past 12 Hours) Vital Signs Temp Pulse Resp BP Pulse Ox 07/14/21 08:25 37.1 C 85 16 132/86 96 Laboratory Results Short CBC 07/14/21 Range/Units 05:21 WBC 9.65 (4.8-10.8) K/uL Hgb 15.1 (14.0-18.0) g/dL Hct 44.5 (42-52) % Plt Count 377 (130-400) K/uL BMP 07/14/21 05:21 Sodium 135 L Potassium 3.8 Chloride 99 Carbon Dioxide 28 BUN 13 Creatinine 0.83 Glucose 172 H Calcium 9.2 Medications Administered Current Inpatient Medications Acetaminophen (Acetaminophen 325 Mg Tab) 650 mg PO Q4H PRN PRN Reason: Pain or Fever Stop: 08/08/21 03:49 Last Admin: 07/11/21 18:20 Dose: 650 mg Documented by: Aspirin (Aspirin 81 Mg Ectab) 81 mg PO BID [facility] Stop: 08/10/21 20:59 Last Admin: 07/13/21 20:52 Dose: 81 mg Documented by: Atropine Sulfate (Atropine Sulfate 0.1 Mg/Ml 10ml Syr) 0.5 mg IV Q1M PRN PRN Reason: PACU Use-HR<40 &/or Bradycardi Stop: 07/14/21 22:12 Bisacodyl (Bisacodyl 10 Mg Supp) 10 mg UT DAILY PRN PRN Reason: Constipation Stop: 08/10/21 09:52 Dextrose (Dextrose 50% 50 Ml Syringe) 25 - 50 ml IV UD PRN; Protocol PRN Reason: Hypoglycemia Protocol Stop: 08/08/21 03:49 Docusate Sodium (Docusate Sodium 100 Mg Cap) 100 mg PO BID [facility] Stop: 08/10/21 09:59 Last Admin: 07/13/21 20:51 Dose: Not Given Documented by: Ephedrine Sulfate (Ephedrine Sulfate 50 Mg/Ml Amp) 5 mg IV Q5M PRN PRN Reason: PACU Use Only-SBP<90 mmHg Stop: 07/14/21 22:12 Famotidine (Famotidine 10 Mg Tablet) 10 mg PO HS PRN PRN Reason: HEARTBURN/INDIGESTION Stop: 08/08/21 03:49 Last Admin: 07/13/21 08:25 Dose: 10 mg Documented by: Fentanyl Citrate (Fentanyl Citrate 100 Mcg/2 Ml Vial) 50 mcg IV Q5M PRN PRN Reason: PACU Use Only-Pain Stop: 07/14/21 22:12 Fluconazole (Fluconazole 100 Mg Tab) 400 mg PO DAILY [facility]; Protocol Stop: 08/22/21 15:59 Last Admin: 07/13/21 08:26 Dose: 400 mg Documented by: Glucagon (Glucagon For Inj 1 Mg Vial) 1 mg SQ UD PRN; Protocol PRN Reason: Hypoglycemia Protocol Stop: 08/08/21 03:49 Glucose (Glucose 10 Tabs/Tube) 4 - 8 tabs PO UD PRN; Protocol PRN Reason: Hypoglycemia Protocol Stop: 08/08/21 03:49 Glucose (Glucose 40% Gel 15 Gm Tube) 15 - 30 gm PO UD PRN; Protocol PRN Reason: Hypoglycemia Protocol Stop: 08/08/21 03:49 Hydrochlorothiazide (Hydrochlorothiazide 25 Mg Tab) 25 mg PO QAM [facility] Stop: 08/09/21 08:59 Last Admin: 07/13/21 08:27 Dose: 25 mg Documented by: Hydromorphone HCl (Hydromorphone Inj 0.5 Mg/0.5 Ml Syr) 0.5 mg IV Q4H PRN PRN Reason: Pain Stop: 07/25/21 09:01 Promethazine HCl 12.5 mg/ (Sodium Chloride) 50.5 mls @ 202 mls/hr IV Q6H PRN PRN Reason: Nausea And Vomiting Stop: 08/08/21 03:49 Ceftriaxone Sodium 2,000 mg/ (Dextrose) 70 mls @ 100 mls/hr IV Q24H [facility]; Protocol Stop: 08/22/21 15:59 Last Infusion: 07/13/21 16:20 Dose: Infused Documented by: Insulin Aspart (Insulin Aspart Per Unit) 0 units SC Q6 [facility] Stop: 08/13/21 05:59 Last Admin: 07/14/21 12:39 Dose: 2 units Documented by: Insulin Glargine (Insulin Glargine Solostar 100 Units/Ml 3 Ml Pen) 0 units SC HS [facility]; Protocol Stop: 08/12/21 20:59 Lisinopril (Lisinopril 40 Mg Tab) 40 mg PO DAILY [facility] Stop: 08/08/21 08:59 Last Admin: 07/13/21 08:27 Dose: 40 mg Documented by: Magnesium Hydroxide (Magnesium Hydroxide Susp 30 Ml Udc) 30 ml PO Q6H PRN PRN Reason: Constipation Stop: 08/10/21 09:52 Miscellaneous (Carbohydrates For Hypoglycemia ) 15 - 30 gm PO UD PRN PRN Reason: Hypoglycemia Protocol Stop: 08/08/21 03:49 Miscellaneous Information (Pharmacy Glycemic Mgmt Consult) 1 ea N/A UD PRN PRN Reason: Consult Stop: 08/08/21 13:42 Morphine Sulfate (Morphine Sulfate 4 Mg/Ml 1 Ml Carp\Vial) 4 mg IV Q4H PRN PRN Reason: Pain Stop: 07/23/21 03:49 Multivitamins (Multivitamin Tab) 1 tab PO QAM [facility] Stop: 08/10/21 09:59 Last Admin: 07/13/21 08:28 Dose: 1 tab Documented by: Naloxone HCl (Naloxone Hcl 0.4 Mg/1 Ml Vial/Carp) 0.1 mg IV Q5M PRN PRN Reason: Oversedation/Resp Depression Stop: 08/10/21 09:52 Ondansetron HCl (Ondansetron Inj 2 Mg/Ml 2 Ml Vial) 4 mg IV Q6H PRN PRN Reason: Nausea And Vomiting Stop: 08/10/21 09:52 Ondansetron HCl (Ondansetron Inj 2 Mg/Ml 2 Ml Vial) 4 mg IV ONCE PRN PRN Reason: PACU Use Only-Nausea/Vomiting Stop: 07/14/21 22:12 Oxycodone HCl (Oxycodone Hcl Ir 5 Mg Tab (Immediate Release)) 5 mg PO Q4H PRN PRN Reason: Pain Stop: 07/23/21 03:49 Saccharomyces Boulardii (Saccharomyces Boulardii 250 Mg Cap) 250 mg PO DAILY [facility] Stop: 08/08/21 08:59 Last Admin: 07/13/21 08:25 Dose: 250 mg Documented by:
--- NOTE | 2021-07-14 16:05 | Post Operative Brief Note ---
Immediate Post Op Note v1 Date of Surgery July 14, 2021 Pre & Post Diagnosis Operation Date: 07/10/21 09:50 <No data on this case meets the specified criteria> Operation Date: 07/11/21 07:15 Pre-Op Diagnosis: Abcess great toe and 2nd toe Post-Op Diagnosis: Abcess great toe and 2nd toe Operation Date: 07/14/21 07:15 Pre-Op Diagnosis: Abscess left forefoot first interdigital space, tissue necrosis dorsal great toe, tissue necrosis dorsal second toe, tenosynovitis extensor houses longus, tenosynovitis second extensor tendon, diabetic neuropathic ulcer second metatarsal head Post-Op Diagnosis: Abscess left forefoot first interdigital space, tissue necrosis dorsal great toe, tissue necrosis dorsal second toe, tenosynovitis extensor houses longus, tenosynovitis second extensor tendon, diabetic neuropathic ulcer second metatarsal head I identified the patient and participated in the time-out.: Yes Procedure Operation Date: 07/10/21 09:50 <No data on this case meets the specified criteria> Operation Date: 07/11/21 07:15 Actual Procedures p 1. Evacuation of Abcess 1st MTP, 2. Evacuation of Abcesess of 2nd MTP, 3. Tenosynovectomy 2nd Extensor, 4. Debridement of ulcer left great toe, 5 Measurement planter left great toe 0.9 x 0.8 x 0.6 2nd metarsal 1.3 x 1.0 x 1.4 - Joseph Newman DO Operation Date: 07/14/21 07:15 Actual Procedures p Left forefoot incision and drainage abscess first interdigital space, Debridement tissue necrosis dorsal great toe including skin, subcutaneous, dermis and fascia, Debridement tissue necrosis dorsal second toe including skin, subcutaneous, dermis and fascia, tenosynovectomy extensor hallucis longus tendon, tenosynovectomy second extensor tendon (Left) - Joseph Newman DO Surgeon Joseph Newman DO Fur Vault Attendant None Estimated Blood Loss 1 Findings Consistent with Post-Op Diagnosis Specimens Aerobic, anaerobic, Gram stain first intermetatarsal space Septic tenosynovitis EHL and second extensor tendon for pathology Drains Other (1/4 inch iodoform gauze drains x6 separate sites) Anesthesia Type MAC Complications none Disposition Accompanied Patient To Recovery: No
[2021-07-14] MEDS ORDERED: TAMSULOSIN HCL 0.4 MG CAP PO PRN (16:38)
[2021-07-14] MEDS ORDERED: NALOXONE HCL 0.4 MG/1 ML VIAL/CARP IV PRN (16:38)
[2021-07-14] MEDS ORDERED: SODIUM CHLORIDE 0.9% 1000ML 1,000 ML IV SCH (16:38)
[2021-07-14] MEDS: FLUCONAZOLE 100 MG TAB PO SCH (16:45)
[2021-07-14] MEDS: ASPIRIN 81 MG ECTAB PO SCH ×2 (16:45→20:17)
[2021-07-14] MEDS: DOCUSATE SODIUM 100 MG CAP PO SCH ×2 (16:46→20:17)
[2021-07-14] MEDS: hydroCHLOROthiazide 25 MG TAB PO SCH (16:46)
[2021-07-14] MEDS: MULTIVITAMIN TAB PO SCH (16:46)
[2021-07-14] MEDS: lisinopril 40 MG TAB PO SCH (16:46)
[2021-07-14] MEDS: SACCHAROMYCES BOULARDII 250 MG CAP PO SCH (16:47)
[2021-07-14] MEDS: ACETAMINOPHEN 325 MG TAB PO PRN (16:51)
[2021-07-14] MEDS: cefTRIAXone SODIUM 2,000 MG in DEXTROSE 5% 50 ML IV SCH (16:52)
--- NOTE | 2021-07-14 17:11 | Anesthesiology Progress Note ---
Date of Service July 14, 2021 Anesthesia Post Procedure Vital Signs Vital Signs: Temp Pulse Pulse Resp BP BP Pulse Ox 07/14/21 16:43 98.4 F 89 18 141/93 H 100 07/14/21 16:20 97.0 F L 85 14 122/93 97 07/14/21 16:10 86 16 130/90 98 07/14/21 16:00 90 12 120/91 100 07/14/21 15:53 96.8 F L 95 H 20 121/82 98 07/14/21 08:25 98.8 F 85 16 132/86 96 07/13/21 22:20 98.2 F 94 H 20 96/71 L 97 Transfer of Care Handoff Completed per policy Notes Mental Status: alert / awake / arousable and participated in evaluation Patient Amnestic to Procedure: Yes Nausea / Vomiting: adequately controlled Pain: adequately controlled Airway Patency, RR, SpO2: stable & adequate BP & HR: stable & adequate Hydration State: stable & adequate Anesthetic Complications: no major complications apparent and Pt Satisfied with anesthetic care
[2021-07-14] MEDS ORDERED: INSULIN GLARGINE SOLOSTAR 100 UNITS/ML 3 ML PEN SC SCH (21:00)
[2021-07-14] MEDS ORDERED: SENNA 8.6 MG TAB PO SCH (21:00)
--- NOTE | 2021-07-15 02:20 | Operative Report (OR) ---
DATE OF PROCEDURE: 07/14/2021. PREOPERATIVE DIAGNOSES: 1. Abscess, left first interdigital space. 2. Tissue necrosis, dorsal great toe. 3. Tissue necrosis, dorsal second toe. 4. Tenosynovitis extensor hallucis longus tendon. 5. Tenosynovitis, second extensor tendon. 6. Diabetic neuropathic ulcer, second metatarsal head. POSTOPERATIVE DIAGNOSES: 1. Abscess, left first interdigital space. 2. Tissue necrosis, dorsal great toe. 3. Tissue necrosis, dorsal second toe. 4. Tenosynovitis extensor hallucis longus tendon. 5. Tenosynovitis, second extensor tendon. 6. Diabetic neuropathic ulcer, second metatarsal head. PROCEDURES: 1. Left forefoot incision and drainage of abscess first interdigital space. 2. Debridement great toe, tissue necrosis dorsal including skin, subcutaneous tissue, fascia and sammy mis. 3. Debridement tissue necrosis, dorsal second toe including skin, subcutaneous tissue, dermis and fa scia. 4. Tenosynovectomy of extensor hallucis longus tendon. 5. Tenosynovectomy, second extensor tendon. SURGEON: Joseph Newman DO. SUPERVISOR INSULATION: None. ANESTHESIA: Local MAC. SPECIMENS: None previously obtained. DRAINS: 1/2 half-inch iodoform gauze. DRAINS: Times 6 separate sites. COMPLICATIONS: None. BLOOD LOSS: 1 mL. PERTINENT HISTORY: This is a 51-year-old diabetic with neuropathy 3-month ongoing ulceration which w orsened over the last week to 2 weeks. He presented to the hospital, had IV antibiotics, had previou s incision and drainage with surgical treatment of the foot on 07/11/2021. Patient continued to have features of wound necrosis of the great toe, second toe with a recurrent abscess in the first interd igital space. The patient was then taken to the operative suite as indicated to clear infection and necrosis. All potential risks, benefits, complications, alternatives, rehab potential for incomplete relief of symptoms, need for further surgery, DVT, PE, , persistent pain, swelling, scarring, weakness, ne urovascular injury, wound complications, need for further amputation and possible skin graft was disc ussed with the patient. The patient decided to proceed with procedure as indicated. DESCRIPTION OF PROCEDURE: The patient was taken to the operative suite and placed supine on the oper ating table. After review of consent and identification of proper operative site, the patient was se dated. Tourniquet was placed high on the left thigh over cast padding, however, the tourniquet was n ot used during the case. Left lower extremity was then sterilely prepped and draped in the usual fas hion, elevated and an Esmarch tourniquet was applied over sterile surgical towel at the level of the ankle. There was no exsanguination performed due to the nature of the infection. After surgical nash eout was performed, multiple sutures were removed to gain access to the deep soft tissue, noted to be wound necrosis dorsal great toe, dorsal second toe, marked improvement when compared to previous diamond liang. However, abscess collection was noted in the first interdigital space after careful scissor di ssection with tenotomy scissors. Approximately 3 mL of abscess fluid was noted. This was eradicated and evacuated with a rongeur and a curette. Next, attention was then directed toward the great toe, tissue necrosis including slough and obvious skin necrosis was addressed with a 15 blade scalpel, it was debrided. The margins of the tissue appe ared healthier; however, area approximately 2 x 3 cm was affected over the great toe. Sharp dissecti on was performed with a 15 blade scalpel including skin, dermis, subcutaneous tissue and fascia. The extensor hallucis longus tendon was then exposed, noted to have murky hypertrophic septic tenosynovi tis. Tenosynovectomy was then performed with a rongeur clearing the tenosynovitis from the great toe . Next, attention was then directed toward the second toe; skin and slough was then cleared with a 15 b lade scalpel. The zone of injury approximately 1 x 3 cm in length was addressed, debriding skin, sub cutaneous tissue, dermis and fascia. After this was sharply debrided with the 15 blade scalpel, leav ing healthy tissue behind, there was noted to be evaluation of the second extensor tendon. It reveal ed a hypertrophic infected tenosynovitis. This was then debrided with a rongeur. All remaining heal thy tissue left behind. Next, pulsatile lavage was then used to lavage the dorsum of the great toe, the second toe, the extensor hallus longus and the second extensor tendon until clear with 3 liters o f saline with bacitracin. Including the plantar ulcer noted on previous debridement measuring 1.3 x 1.0 x 1.4 cm. This appeared markedly more healthy compared to previous with less features of necrosi s. There is no foul odor. Next, multiple 1/4-inch iodoform gauze packed and drains were placed in 6 separate sites including th e first great toe, second toe adjacent to the extensor hallucis longus and the second extensor tendon in the first interdigital space and within the metatarsal second head ulcer. Once this was complete d, a sterile compressive dressing consisting of Adaptic, sterile 4 x 4s, ABD pads x2, cast padding, a nd an Prashanth wrap was applied. The tourniquet was released. The patient was awakened and taken to tenzin very in stable condition. Job ID: [id number]
[2021-07-15 06:38] LABS: Hematocrit (blood only) 42.5 % (42-52); Hemoglobin 14.5 g/dL (14.0-18.0); Mean Corpuscular Hemoglobin 31.9 pg (25-34); Mean Corpuscular Hgb Conc 34.1 g/dL (32-36); Mean Corpuscular Volume 93.4 fL (80-100); Mean Platelet Volume 9.7 fL (7.4-10.4); Platelet Count 362 K/uL (130-400); RDW Coefficient of Variation 11.9 % (11.5-14.5); RDW Standard Deviation 40.3 fL (36.4-46.3); Red Blood Count 4.55 M/uL (4.7-6.1); White Blood Count 11.39 K/uL (4.8-10.8)
[2021-07-15 07:04] LABS: BUN Creatinine Ratio 15.3 (10-20); Creatinine Clr Calc Pharmacy 140.7 ml/min; Est GFR (African American) 117.8 ml/min; Est GFR (Non-African American) 101.6 ml/min; Potassium 3.7 mmol/L (3.5-5.1)
[2021-07-15] MEDS: INSULIN ASPART PER UNIT SC SCH ×2 (08:49→12:40)
[2021-07-15] MEDS: FLUCONAZOLE 100 MG TAB PO SCH (08:50)
[2021-07-15] MEDS: DOCUSATE SODIUM 100 MG CAP PO SCH (08:50)
[2021-07-15] MEDS: ASPIRIN 81 MG ECTAB PO SCH (08:50)
[2021-07-15] MEDS: lisinopril 40 MG TAB PO SCH (08:51)
[2021-07-15] MEDS: MULTIVITAMIN TAB PO SCH (08:51)
[2021-07-15] MEDS: SACCHAROMYCES BOULARDII 250 MG CAP PO SCH (08:51)
[2021-07-15] MEDS: hydroCHLOROthiazide 25 MG TAB PO SCH (08:51)
[2021-07-15] MEDS ORDERED: MULTIVITAMIN TAB PO SCH (09:00)
[2021-07-15] MEDS ORDERED: metroNIDAZOLE 500 MG TAB PO SCH (14:00)
--- NOTE | 2021-07-15 15:47 | XRay Report ---
XR chest 1V portable CLINICAL HISTORY: PICC line placement. COMPARISON STUDY: Chest radiograph July 09, 2021. FINDINGS: Tip of the right PICC projects over the mid SVC. Lung volumes are normal. Lungs are clear. There is no pneumothorax or pleural effusion. Cardiac size is normal. Mediastinal contours are normal . There is no evidence for pulmonary edema. Thoracolumbar spine scoliosis is partially imaged. IMPRESSION: Tip of right PICC projects over the mid SVC. ACT 112: Negative or not required by law. Electronically signed by: Santiago Greco M.D. 07/15/2021 3:46 PM
--- NOTE | 2021-07-15 15:51 | Orthopedic Progress Note ---
Date of Service July 15, 2021 Assessment & Plan (1) Cellulitis of foot, left: Plan: POD 1 s/p 2nd I/D. 1.1. Left forefoot incision and drainage of abscess first interdigital space. 2. Debridement great toe, tissue necrosis dorsal including skin, subcutaneous tissue, fascia and dermis.3. Debridement tissue necrosis, dorsal second toe including skin, subcutaneous tissue, dermis and fascia. 4. Tenosynovectomy of extensor hallucis longus tendon. 5. Tenosynovectomy, second extensor tendon. Pt getting dc'd later today. IV antibx arranged with [facility]. Daily dressing changes. Plan to see Benjamin Russell PA-C this week for wound check. Admission and Anticipated Discharge Date Admission Date: July 09, 2021 Subjective POD 1 Pt awake, alert. No complaints. Pain controlled. Pt states he is set up for outpt IV antibx at [facility]. Physical Exam Physical Exam: Dressings remvoed. All packing removed. Erythema around the toes mostly over the dorsal aspect. Sutures intact. Mild amount of tannish tissue noted between first and second toe. No foul odor. Plantar aspect appears benign. Ulcer on plantar surface appears benign. Aquacel AG place between first and second toes. Remainder covered with adpatic, 4x4's , ABd's, kerlix, maxi wrap. Cap refill < 2 seconds. Results & Data ([facility]) Vital Signs (Past 12 Hours) Vital Signs Temp Pulse Resp BP BP Pulse Ox 07/15/21 12:02 36.6 C 94 H 18 111/70 100 07/15/21 08:37 36.4 C L 97 H 16 121/84 98 07/15/21 04:16 36.5 C 82 16 128/80 96
[2021-07-15] MEDS: cefTRIAXone SODIUM 2,000 MG in DEXTROSE 5% 50 ML IV SCH (16:07)
--- NOTE | 2021-07-15 19:34 | Discharge Summary ---
Date of Service July 15, 2021 Admission HPI Per Admitting Provider History obtained from patient and records. Medical history significant for hypertension, scoliosis. Patient has not been to a family doctor since 2009. Blood pressure medicine being prescribed by his [id number] a practicing road repairer in [place], [place]. Patient has had a wound on his left foot for about 2 months. Started with a small hole at the bottom of the foot that would close up and reopen over the last few weeks. OTC topical antibiotic Rx utilized by patient. About 5 days ago, patient noted sudden worsening of left foot wound with some drainage. Some chills. No chest pain, no S OB. Patient sent a picture to his [id number]-ow-yyp who prescribed Keflex course. Patient consulted [facility] [address] urgent care yesterday because of worsening left foot wound infection. Necrotic wound on the left foot noted. Wound cultures obtained outpatient. Patient directed to ER for evaluation. Daptomycin, Clindamycin, and Zosyn administered at the emergency room. IV insulin administered at the ER for blood sugar in the 300s. 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 Admission Exam Per Admitting Provider GENERAL: Comfortable, sweaty, obese, pleasant, no respiratory distress SKIN: Normal color, warm HEENT: Bespectacled, [place] palpebral conjunctivae, no ptosis, dry buccal mucosa NECK : Supple, short neck, no tenderness CHEST : CTA, no tenderness HEART : Tachycardic, no obvious murmurs ABDOMEN: Some distention, nontender EXTREMITIES : No LE swelling/tenderness, dressing and boot over left foot, no other conspicuous deformities noted NEUROLOGIC : Coherent, no facial asymmetry, no other gross focality Principal Diagnosis Septic tenosynovitis of left foot Diabetic left foot infection/abscess Newly diagnosed diabetes --> poorly controlled. Discharge Exam GENERAL: Alert and oriented x3. NAD, on RA. HEENT: No pallor, no icterus. Pupils equal, round and reactive to light. Oral mucosa moist. NECK: No JVD, no neck masses. HEART: S1 and S2 heard. Regular rate and rhythm. No murmur, no gallop. RESPIRATORY SYSTEM: Normal AP diameter. No accessory muscle use. No wheezing, no crackles. ABDOMEN: Soft, bowel sounds present, nontender, no distention. CENTRAL NERVOUS SYSTEM: No facial droop. Speech is clear. Obeys simple c ommands. Moves extremities. EXTREMITIES: No edema, no erythema seen. Left foot with clean dressing without soakage noted. Discharge Data Allergies Allergy/AdvReac Type Severity Reaction Status Date / Time No Known Allergies Allergy Verified 07/08/21 23:39 Consultations 07/08/21 23:58 ED Decision to Admit Stat 07/09/21 02:13 Consult Orthopedic Surgery Routine 07/10/21 14:42 Consult Infectious Diseases Routine Procedures Performed Operation Date: 07/10/21 09:50 <No data on this case meets the specified criteria> Operation Date: 07/11/21 07:15 Actual Procedures p 1. Evacuation of Abcess 1st MTP, 2. Evacuation of Abcesess of 2nd MTP, 3. Tenosynovectomy 2nd Extensor, 4. Debridement of ulcer left great toe, 5 Measurement planter left great toe 0.9 x 0.8 x 0.6 2nd metarsal 1.3 x 1.0 x 1.4 - Joseph Keane DO Operation Date: 07/14/21 07:15 Actual Procedures p Incision and Drainage Extremity:Repeat Left foot(Left) - Joseph Keane DO Ordered Studies 07/08/21 22:18 CT foot LT w con Urgent 07/09/21 14:33 MR foot LT wo/w con Routine Diabetes Follow up Diabetes Follow-up Needed for HgbA1c >9%,Newly Diagnosed Diabetes Hospital Course (1) Sepsis: present on admission with tachycardia and leukocytosis treated and resolved #. Left DM foot infection #. Abscess, cellulitis #. Tenosynovitis -Surgical management and wound care per Orthopedic surgery -ESR-68, CRP - 12.9 -deep tissue culture 07/09 --> +group B strep and yeast (not pete) -OR culture 07/11--> group B strep, finegoldia magna, anaerobic gram positive bacili -MRI left foot negative for osteomyelitis (unlike findings on CT), findings of cellulitis, tenosynovitis, abscess -OR 07/11 for extensive debridement. 2nd debridement 07/14 -Rediscussion with ID 07/15, metronidazole added for 6 weeks. Already on: ceftriaxone 2gm IV daily, fluconazole 400mg daily, plan for 6 week course. Follow-up with ID in 2 to 4 weeks upon discharge. -weekly CBC, CMP and ESR. Follow up in ID clinic in 2-4 weeks #. Newly diagnosed poorly controlled DM -HA1c 10.3% -Discharged on Lantus 35 units at bedtime and Metformin XR 500 mg daily with largest meal -Prescription provided for diabetic supplies. -Patient to follow-up with PCP as an outpatient for close monitoring of his diabetes. #. HTN -continue lisinopril 40mg daily and HCTZ 25mg daily -Fairly under control while in hospital. Patient being discharged to home [patient prefers infusion center rather than home infusion] with following instruction at the point of discharge: Follow-up with your primary care physician within a week time. Continue daily dressing changes as per orthopedics recommendation. Ortho taught you prior to discharge. You may need outpatient wound care follow-up. Follow-up with orthopedics as per their recommendation. You've been diagnosed with diabetes, prescription has been provided for medication and diabetic supplies. Close follow-up with your primary care physician for ongoing management. For your left foot diabetic infection, urine antibiotics and antifungal for total of 6 weeks duration as of now, you will need to follow-up with infectious disease doctor in 2 to 4 weeks upon discharge. Weekly CBC, CMP and ESR for the duration of antibiotic. Follow-up with your primary care physician for prescription and continuous monitoring. Take medications as prescribed. Total Time Total Time Spent Total Time Spent (In Minutes): 45 Discharge Plan Discharge Items Patient Disposition: Home - Self-Care Reason For Visit: SEPSIS Discharge Diagnosis: Septic tenosynovitis of left foot Diabetic left foot infection/abscess Newly diagnosed diabetes --> poorly controlled. Activity: Per Instructions section Weightbearing: Left weightbearing Weightbearing Comment: HEEL WEIGHTBEARING ONLY Non-emergency contact: Primary Care Provider Call non-emergency contact if: you have any medication questions, your symptoms worsen, your pain is not controlled and your temperature is above 101 Follow-up/Referrals: [facility] Infectious Disease Office [Other] ([facility] Infectious Disease office will call you with an appointment. The number to call is if you do not receive a call. ) Joseph Keane DO [Surgeon] - 02/06/22 9:15 am (FOLLOW UP WITH KEISHA RUSSELL PA-C ON 02/06/22 AT 9:15 AM FOR WOUND CHECK) Levy Tamez MD [Physician] - 07/19/21 11:00 am (Date & Time 07/19/2021 11:00 AM Provider Levy Tamez III, MD Department [facility] ) Diet: Carb Consistent or DM2 and Heart Healthy Addtl Attending Provider Instructions: Follow-up with your primary care physician within a week time. Continue daily dressing changes as per orthopedics recommendation. Ortho taught you prior to discharge. You may need outpatient wound care follow-up. Follow-up with orthopedics as per their recommendation. You've been diagnosed with diabetes, prescription has been provided for medication and diabetic supplies. Close follow-up with your primary care physician for ongoing management. For your left foot diabetic infection, urine antibiotics and antifungal for total of 6 weeks duration as of now, you will need to follow-up with infectious disease doctor in 2 to 4 weeks upon discharge. Weekly CBC, CMP and ESR for the duration of antibiotic. Follow-up with your primary care physician for prescription and continuous monitoring. Take medications as prescribed. 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 SPECIAL CARE INSTRUCTIONS: * Some drainage onto the dressing is normal and is no cause for alarm. * Some swelling is natural especially after walking. * When resting, keep your foot elevated above the level of your heart. * Call [facility] if you notice: -Increased drainage, , redness going up the ankle or leg -Fever over 101 degrees F -Severe constant pain BANDAGE: * DAILY DRESSING CHANGES. YOU WILL NEED AQUACEL AG (1"X3" PIECE) TO PUT BETWEEN THE 1ST AND 2ND TOE. THE REMAINDER OF THE DRESSING WILL BE ADAPTIC NONSTICK DRESSING, 4X4 GAUZE, ABD'S ( ABDOMINAL DRESSING OR [employer] DRESSING), KERLIX WRAP 4", AND ELIZABETH WRAP. * Keep bandage/cast dry at all times. FOLLOW UP VISIT WITH DR. KEANE If appointment is not already scheduled: YOU WILL FOLLOW UP WITH KEISHA RUSSELL PA-C THIS THURSDAY AT 9:15 AM TO CHECK YOUR WOUND. THE OFFICE NUMBER IS . PLEASE CALL WITH ANY QUESTIONS. Pending Studies at Discharge: No Stand-Alone Forms: My Open CS, Smoking Cessation Medications and DC Order Prescriptions: New fluconazole 100 mg Tablet 400 mg PO DAILY 38 Days Qty: 152 RF: 0 metronidazole 500 mg Tablet 500 mg PO TID 42 Days Qty: 126 RF: 0 aspirin 81 mg Tablet,Delayed Release (Dr/Ec) 81 mg PO BID 14 Days Qty: 28 RF: 0 acetaminophen 325 mg Tablet 650 mg PO Q8H PRN (Reason: pain) 14 Days Qty: 84 RF: 0 oxycodone 5 mg Tablet 5 mg PO Q8H PRN (Reason: severe pain (scale score 7-10)) 3 Days Qty: 9 RF: 0 Saccharomyces boulardii [Florastor] 250 mg Capsule 250 mg PO DAILY 42 Days Qty: 42 RF: 0 Lantus Solostar U-100 Insulin 100 unit/mL (3 mL) Insulin Pen 35 unit SC HS Qty: 15 RF: 0 multivitamin with folic acid [Daily-Anton (with folic acid)] 400 mcg Tablet 1 tab PO QAM Qty: 30 RF: 0 ceftriaxone 2 gram recon soln 2 g IV DAILY 38 Days Qty: 38 RF: 0 metformin 500 mg tablet extended release 24 hr 500 mg PO DAILY Qty: 30 RF: 0 Continued famotidine 10 mg Tablet 10 mg PO HS PRN (Reason: HEARTBURN/INDIGESTION) RF: 0 ibuprofen [Advil] 200 mg Tablet 400 mg PO DIRECTED PRN (Reason: Pain) RF: 0 hydrochlorothiazide 25 mg tablet 25 mg PO DAILY RF: 0 lisinopril 40 mg tablet 40 mg PO DAILY RF: 0 Discontinued cephalexin 500 mg capsule 500 mg PO TID RF: 0 Discharge Orders: Discharge Order (Routine); Ordered 07/15/21 Ordered By: Nikki Callahan/Other Patient Handouts: Nutrition for Wound Healing, Managing Type 2 Diabetes, Insulin Injections, Types of Insulin Admission Data Admit Date/Time: 07/09/21 02:09 Attending Provider: Nikki Romero Admit Provider: Chris Shaffer Primary Care Provider: PCP,NO Other Providers: [facility],Home Healthcare ; Chris Shaffer ; Gregorio Velez ; Joseph Keane ; Ashwin Obando ; Shilpa Gamez ; Daljit Dias ; Trice Hidalgo ; Yuri Yates ; Laureano Maldonado ; Efrem Guzman ; Ervin Koenig ; Laureano Lewis ; Thierry Manley ; Hill Garcia ; Keisha Russell ; Trice Viera ; Severiano Perrin ; Garrett Churchill ; Nidhi Fields ; Levy Mario ; Kym Chen ; Vargas Mckenzie ; Wyatt Gonzales ; Richar Lui ; Tony Koch I. ; Syed Del Real II ; Marlen Cuevas ; Efrem Nam ; Zaid Schultz. Other Interventions: Discharge Summary Assessment (RN) Last Done: 07/15/21 17:34
== END 2021-07-15 18:30 | disposition home or self-care (01) | DRG 854 ==
LOC: ED 18:46 → SUATTDRO 07-09 02:09 → EDINP 07-09 02:09 → 2N 07-09 19:00 → 3E 07-13 14:57